=== PATIENT | female | born 1980 | race African-American/Black ===

== ENCOUNTER 2025-04-09 14:52 | Inpatient (IN) | payer MEDICAID, SELFPAY ==
[2025-04-09 15:01] VITALS: BP 139/65; PULSE 73; RESP 16; TEMP 36.9; O2SAT 99
--- NOTE | 2025-04-09 15:24 | ED.C_ITS ---
HPI - Psych 2 General: Chief Complaint: Psychiatric Symptoms Stated Complaint: 96 Time Seen by Provider: 04/09/25 14:57 Source: patient and police History of Present Illness: 44-year-old female brought in by [facility] police for suicidal statements patient was arrested yesterday in front of the truck driver instructor today had stated she just wants to and wants to kill herself and placed under a quarter 96-hour hold and brought here. Patient here has been very avoidant is only answering a few questions patient appears very paranoid and confused Associated symptoms: Reports suicidal ideation Related Data Allergies Allergy/AdvReac Type Severity Reaction Status Date / Time Unable to Assess Allergy Unverified 04/09/25 17:33 Review of Systems 2 Psych: Reports: suicidal ideation Physical Exam 2 Const: COMMON NORMALS: alert; negative for patient oriented x3 ORIENTATION/CONSCIOUSNESS: Yes oriented to person; not oriented to place and not oriented to time HENMT: COMMON NORMALS: normocephalic and atraumatic HEAD & SCALP: n ormocephalic and atraumatic Eye: COMMON NORMALS: Equal, round and reactive pupils present and EOMs intact bilaterally PUPIL: Yes Equal, round and reactive pupils present Neck/C-Spine: COMMON NORMALS: full ROM Chest: COMMONS NORMALS: normal inspection of the chest and normal palpation of entire chest wall Resp: COMMON NORMALS: normal respiratory effort, No retractions, No use of accessory muscles and clear to auscultation bilaterally AUSCULTATION: clear to auscultation bilaterally Cardio: COMMON NORMALS: regular rate, regular rhythm and No murmurs present (Cardio) RATE: regular rate RHYTHM: regular rhythm Extremity: COMMON NORMALS: normal to inspection and full ROM Neuro: COMMON NORMALS: moves all extremities and no focal motor deficits; negative for patient oriented x3 SENSORIUM/ORIENTATION: Yes alert, Yes oriented to person, No oriented to place and No oriented to time Psych: COMMON NORMALS: negative for mental status grossly normal ATTITUDE: Yes evasive MOOD & AFFECT: Yes depressed mood THOUGHT CONTENT: Yes Suicidality present Skin: COMMON NORMALS: no rashes or lesions noted and no wounds GENERAL SKIN EXAM: no rashes or lesions noted Course 2 Vital Signs: Vital signs: Vital Signs Temperature 98.4 F 04/09/25 15:01 Pulse Rate 73 04/09/25 15:01 Respiratory Rate 16 04/09/25 15:01 Blood Pressure 139/65 04/09/25 15:01 Pulse Oximetry 99 04/09/25 15:01 Oxygen Delivery Me thod Room Air 04/09/25 15:01 MDM - Psych Medical Decision Making Patient presents here with police on a 96-hour hold for making suicidal statements in court. She had been arrested yesterday for erratic behavior and threatening people. Patient here has had erratic behavior she is able to tell me her name but is very paranoid did make statements that she wanted to . While patient was here her lab work did show an anion gap with a low CO2 she had also had a slight elevated white count. Did check a urinalysis no signs of UTI chest x-ray showed no signs of pneumonia. She has had no fever here no nuchal rigidity no sign of meningitis. Did perform a head CT as she has had confusion and has had no history of ever being here before head CT here showed a possible infarct. She is not a lytic candidate due to not knowing when her last known well was. I did speak to the hospitalist and will admit here for medical clearance while she is on a 96-hour hold I spoke to psychiatrist Dr. Chacon who is consulted as well. Medical Records I reviewed the patient's medical records. Lab Data I reviewed the patient's lab results. 04/09/25 15:39 04/09/25 18:38 Radiology Impressions Chest X-Ray 04/09/25 17:02 IMPRESSION: No acute findings. Head CT 04/09/25 17:02 IMPRESSION: Possible infarct superior aspect of the right cerebellar hemisphere. Please correlate with history. No definite acute finding. ASSESSMENT: ASPECTS ([place] Stroke Program Early CT Score) is 10. ADDENDUM: 04/09/251929 Addendum: THIS REPORT CONTAINS FINDINGS THAT MAY BE CRITICAL TO PATIENT CARE. The findings were verbally communicated via telephone conference with SMITA NAVARRO at 7:29 PM GUIDANCE AND CONTROL SYSTEM ENGINEER on 04/09/2025. The findings were acknowledged and understood. Laboratory Results WBC 16.69 10^3/uL (3.29-11.43) H 04/09/25 15:39 RBC 4.35 10^6/uL (3.85-5.65) 04/09/25 15:39 Hgb 11.70 g/dL (11.27-16.99) 04/09/25 15:39 Hct 36.3 % (36-47) 04/09/25 15:39 MCV 83.4 fl (85-98) L 04/09/25 15:39 MCH 26.9 pg (27-33) L 04/09/25 15:39 MCHC 32.2 g/dL (30-55) 04/09/25 15:39 RDW 16.0 % (12.1-15.1) H 04/09/25 15:39 Plt Count 339 10^3/cmm (157-399) 04/09/25 15:39 MPV 10.9 fL (7.4-10.4) H 04/09/25 15:39 Neut % (Auto) 85.9 % 04/09/25 15:39 Lymph % (Auto) 6.5 % 04/09/25 15:39 [place] % (Auto) 6.7 % 04/09/25 15:39 Eos % (Auto) 0.0 % 04/09/25 15:39 Baso % (Auto) 0.2 % 04/09/25 15:39 Neut # (Auto) 14.35 10^3/uL (1.8-7.7) H 04/09/25 15:39 Lymph # (Auto) 1.1 10^3/uL (0.8-4.8) 04/09/25 15:39 [place] # (Auto) 1.1 10^3/uL (0.2-0.9) H 04/09/25 15:39 Eos # (Auto) 0.0 10^3/uL (0.0-0.8) 04/09/25 15:39 Baso # (Auto) 0.0 10^3/uL (0.0-0.1) 04/09/25 15:39 Nucleated RBC % (auto) 0 % 04/09/25 15:39 Nucleated RBCs # 0.0 /100WBC 04/09/25 15:39 Sodium 138 mmol/L (136-145) 04/09/25 18:38 Potassium 3.7 mmol/L (3.5-5.1) 04/09/25 18:38 Chloride 106 mmol/L (98-107) 04/09/25 18:38 Carbon Dioxide 11 mmol/L (22-29) L 04/09/25 18:38 Anion Gap 24.7 (5-19) H 04/09/25 18:38 BUN 15 mg/dL (6-20) 04/09/25 18:38 Creatinine 0.7 mg/dL (0.5-0.9) 04/09/25 18:38 GFR Calculation 111.0 mL/min (90-130) 04/09/25 18:38 Glucose 70 mg/dL (65-115) 04/09/25 18:38 Calculated Osmolality 285 mOsm/kg (285-295) 04/09/25 18:38 Lactic Acid 1.2 mmol/L (0.5-2.2) 04/09/25 17:18 Calcium 8.1 mg/dL (8.5-10.5) L 04/09/25 18:38 Total Bilirubin 0.8 mg/dL (0.15-1.2) 04/09/25 16:30 AST 128 U/L (0-32) H 04/09/25 16:30 ALT 51 U/L (0-33) H 04/09/25 16:30 Alkaline Phosphatase 93 U/L (35-105) 04/09/25 16:30 Total Protein 8.4 g/dL (6.6-8.7) 04/09/25 16:30 Albumin 4.9 g/dL (3.5-5.2) 04/09/25 16:30 Globulin 3.5 g/dL (1.3-4.6) 04/09/25 16:30 HCG, Qual Negative (Negative) 04/09/25 18:20 Urine Color Yellow (Yellow) 04/09/25 18:20 Urine Appearance Clear (CLEAR) 04/09/25 18:20 Urine pH 5.5 (5-7) 04/09/25 18:20 Ur Specific [place] 1.024 (1.005-1.030) 04/09/25 18:20 Urine Protein 2+ (Negative) A 04/09/25 18:20 Urine Glucose (UA) Negative (Normal) 04/09/25 18:20 Urine Ketones 4+ (Negative) 04/09/25 18:20 Urine Blood 3+ (Negative) A 04/09/25 18:20 Urine Nitrate Negative (Negative) 04/09/25 18:20 Urine Bilirubin Negative (Negative) 04/09/25 18:20 Urine Urobilinogen 1.0 mg/dL (Negative) 04/09/25 18:20 Ur Leukocyte Esterase Negative (Negative) 04/09/25 18:20 Urine RBC 0-2 /hpf (0-2) 04/09/25 18:20 Urine WBC 6-10 /hpf (0-5) 04/09/25 18:20 Ur Squamous Epith Cells 0-5 /hpf (0-5) 04/09/25 18:20 Amorphous Sediment Not Reportable 04/09/25 18:20 Urine Bacteria None seen /hpf (NONE) 04/09/25 18:20 Hyaline Casts 4.52 /lpf 04/09/25 18:20 Salicylates 1.6 mg/dL (3-10) L 04/09/25 16:30 Urine Opiates Screen Positive ng/mL (Negative) H 04/09/25 18:20 Acetaminophen < 5.0 ug/mL (10-30) L 04/09/25 16:30 Ur Barbiturates Screen Negative ng/mL (Negative) 04/09/25 18:20 Ur Phencyclidine Scrn Negative ng/mL (Negative) 04/09/25 18:20 Ur Amphetamines Screen Negative ng/mL (Negative) 04/09/25 18:20 U Benzodiazepines Scrn Negative ng/mL (Negative) 04/09/25 18:20 Urine Cocaine Screen Negative ng/mL (Negative) 04/09/25 18:20 U Marijuana (THC) Screen Positive ng/mL (Negative) H 04/09/25 18:20 Ethyl Alcohol < 10 mg/dL (0-10) 04/09/25 16:30 All radiology interpretation(s) finalized by discharge Discharge Plan Discharge Patient Disposition: Admitted As Inpatient Clinical Impression: Suicidal ideation, Altered mental status Condition: Stable Coding Level of Care Code ED Furnace Installer Helper for Farhan Julian NIH stroke score NIHSS Level Of Consciousness - 1a: 0 Level Of Consciousness Questions - 1b: Both Correct Level Of Consciousness Commands - 1c: Both Correct Best Gaze - 2: Normal Visual Lira - 3: No Visual Loss Facial Palsy - 4: Normal Motor Arm Right - 5: No Drift Motor Arm Left - 5: No Drift Motor Leg Right - 6: No Drift Motor Leg Left - 6: No Drift Limb Ataxia - 7: Absent Sensory - 8: Normal Best Language - 9: No Aphasia Dysarthia - 10: Normal Extinction And Inattention - 11: 0 Score Total Score: 0
[2025-04-09 15:59] LABS: Hematocrit 36.3 % (36-47); Hemoglobin 11.70 g/dL (11.27-16.99); Mean Corpuscular HGB Conc 32.2 g/dL (30-55); Mean Corpuscular Hemoglobin 26.9 pg (27-33); Mean Corpuscular Volume 83.4 fl (85-98); Nucleated Red Blood Cells % 0 %; Platelet Count 339 10^3/cmm (157-399); Red Blood Count 4.35 10^6/uL (3.85-5.65); White Blood Count 16.69 10^3/uL (3.29-11.43)
--- NOTE | 2025-04-09 16:49 | PC.NURSE ---
Pt was read her 96 hour hold rights at 1530 security present
[2025-04-09 16:57] LABS: Alanine Aminotransferase 51 U/L (0-33); Albumin Level 4.9 g/dL (3.5-5.2); Alkaline Phosphatase 93 U/L (35-105); Anion Gap 29.8 (5-19); Aspartate Amino Transferase 128 U/L (0-32); Blood Urea Nitrogen 18 mg/dL (6-20); Calcium 9.6 mg/dL (8.5-10.5); Carbon Dioxide 11 mmol/L (22-29); Chloride 100 mmol/L (98-107); Globulin 3.5 g/dL (1.3-4.6); Glucose 74 mg/dL (65-115); Osmolality Calculated 285 mOsm/kg (285-295); Potassium 3.8 mmol/L (3.5-5.1); Salicylate 1.6 mg/dL (3-10); Sodium 137 mmol/L (136-145); Total Protein 8.4 g/dL (6.6-8.7)
[2025-04-09 16:59] LABS: Acetaminophen < 5.0 ug/mL (10-30); Alcohol Level < 10 mg/dL (0-10)
--- NOTE | 2025-04-09 17:02 | XRR_ITS ---
PROCEDURE INFORMATION: Exam: XR Chest Exam date and time: 04/09/2025 5:02 PM Age: 44 years old Clinical indication: Screening exam; Other screening; Additional info: Psych TECHNIQUE: Imaging protocol: Radiologic exam of the chest. Views: 1 view. COMPARISON: No relevant prior studies available. FINDINGS: Lungs: Clear lungs. Pleural spaces: No pneumothorax or pleural effusion. Heart/Mediastinum: Cardiac silhouette is normal. Bones/joints: Unremarkable. XR/XR chest 1V portable [id number] IMPRESSION: No acute findings.
--- NOTE | 2025-04-09 17:02 | CTR_ITS ---
PROCEDURE INFORMATION: Exam: CT Head Without Contrast Exam date and time: 04/09/2025 7:07 PM Age: 44 years old Clinical indication: Stroke-like symptoms; Other: Confusion TECHNIQUE: Imaging protocol: Computed tomography of the head without contrast. Radiation optimization: All CT scans at this facility use at least one of these dose optimization techniques: automated exposure control; mA and/or kV adjustment per patient size (includes targeted exams where dose is matched to clinical indication); or iterative reconstruction. Other technique: STROKE PROTOCOL was implemented. COMPARISON: No relevant prior studies available. RADIATION DOSE METRICS: Total DLP (mGy-cm): 778.53 FINDINGS: Brain: There is question of some hypodensity in the superior aspect of the right cerebellar hemisphere of uncertain significance. This could represent small infarct of uncertain age. Please correlate with the clinical findings and history. There is no intracranial mass or hemorrhage. Cerebral ventricles: Ventricles within normal limits of size. Pituitary gland and sella: Pituitary is somewhat on the small side. Paranasal sinuses: Visualized sinuses are unremarkable. No fluid levels. Mastoid air cells: Visualized mastoid air cells are well aerated. Orbital cavities: Incidentally noted is that the patient's eyes are deviated towards the left. Bones: Unremarkable. No acute fracture. Soft tissues: Unremarkable. CT/CT head wo con* [id number] IMPRESSION: Possible infarct superior aspect of the right cerebellar hemisphere. Please correlate with history. No definite acute finding. ASSESSMENT: ASPECTS ([place] Stroke Program Early CT Score) is 10.
[2025-04-09 17:47] LABS: Lactic Sepsis W/Reflex 1.2 mmol/L (0.5-2.2)
--- NOTE | 2025-04-09 17:52 | PC.NURSE ---
PATIENT STRAIGHT CATH ATTEMPTED X 2. UNSUCCESSFUL DUE TO FEMALE ANATOMY.
[2025-04-09 18:26] LABS: Glucose Urine UA Negative (Normal); Nitrate Urine Negative (Negative); Specific Gravity, Urine 1.024 (1.005-1.030)
[2025-04-09 18:31] LABS: Add Urine Microscopic? YES
[2025-04-09 18:33] LABS: PCP Screen Urine Negative (Negative)
[2025-04-09 19:01] LABS: HCG Qualitative Urine. Negative (Negative)
[2025-04-09 19:14] LABS: Anion Gap 24.7 (5-19); Blood Urea Nitrogen 15 mg/dL (6-20); Calcium 8.1 mg/dL (8.5-10.5); Carbon Dioxide 11 mmol/L (22-29); Chloride 106 mmol/L (98-107); Glucose 70 mg/dL (65-115); Osmolality Calculated 285 mOsm/kg (285-295); Potassium 3.7 mmol/L (3.5-5.1); Sodium 138 mmol/L (136-145)
--- NOTE | 2025-04-09 19:59 | CTR_ITS ---
PROCEDURE INFORMATION: Exam: CTA Head With Contrast, Arteriography Exam date and time: 04/09/2025 8:48 PM Age: 44 years old Clinical indication: Condition or disease; Infarction; Additional info: Encephalopathy TECHNIQUE: Imaging protocol: Computed tomographic angiography of the head with contrast. Exam focused on the arteries. 3D rendering (Not supervised by radiologist): MIP and/or 3D reconstructed images were created by the technologist. Radiation optimization: All CT scans at this facility use at least one of these dose optimization techniques: automated exposure control; mA and/or kV adjustment per patient size (includes targeted exams where dose is matched to clinical indication); or iterative reconstruction. Contrast material: OMNI 350; Contrast volume: 100 ml; Contrast route: INTRAVENOUS (IV); COMPARISON: CT head wo con* [id number] 04/09/2025 7:07 PM RADIATION DOSE METRICS: Total DLP (mGy-cm): 434.36 FINDINGS: ANTERIOR CIRCULATION: Right internal carotid artery: Intracranial segment is patent with no significant stenosis. No aneurysm. Right middle cerebral artery: No occlusion or significant stenosis. No aneurysm. Right anterior cerebral artery: No occlusion or significant stenosis. No aneurysm. Left internal carotid artery: Intracranial segment is patent with no significant stenosis. No aneurysm. Left middle cerebral artery: No occlusion or significant stenosis. No aneurysm. Left anterior cerebral artery: No occlusion or significant stenosis. No aneurysm. POSTERIOR CIRCULATION: Right vertebral artery: No occlusion or significant stenosis. No aneurysm. 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 No occlusion. Basilar artery: No occlusion or significant stenosis. No aneurysm. Right posterior cerebral artery: No occlusion or significant stenosis. No aneurysm. Left posterior cerebral artery: No occlusion or significant stenosis. No aneurysm. Brain: No definite mass, mass effect, or midline shift. Cerebral ventricles: No ventriculomegaly. Orbital cavities: Patient is again noted to have her eyes deviated towards the left. Please correlate with the clinical examination. Bones/joints: Unremarkable. No acute fracture. Soft tissues: Unremarkable. PROCEDURE INFORMATION: Exam: CTA Neck With Contrast Exam date and time: 04/09/2025 8:48 PM Age: 44 years old Clinical indication: Condition or disease; Infarction; Additional info: Encephalopathy TECHNIQUE: Imaging protocol: Computed tomographic angiography of the neck with contrast. Exam focused on the cervical segments of the vasculature. 3D rendering (Not supervised by radiologist): MIP and/or 3D reconstructed images were created by the technologist. Radiation optimization: All CT scans at this facility use at least one of these dose optimization techniques: automated exposure control; mA and/or kV adjustment per patient size (includes targeted exams where dose is matched to clinical indication); or iterative reconstruction. Contrast material: OMNI 350; Contrast volume: 100 ml; Contrast route: INTRAVENOUS (IV); COMPARISON: CT head wo con* [id number] 04/09/2025 7:07 PM RADIATION DOSE METRICS: Total DLP (mGy-cm): 434.36 FINDINGS: Right common carotid artery: No stenosis. No dissection or occlusion. Right internal carotid artery: No stenosis of the extracranial segment. No dissection or occlusion. Right external carotid artery: No occlusion or stenosis of the origin. Left common carotid artery: No stenosis. No dissection or occlusion. Left internal carotid artery: No stenosis of the extracranial segment. No dissection or occlusion. Left external carotid artery: No occlusion or stenosis of the origin. Right vertebral artery: Right vertebral artery is dominant and is patent throughout its length without stenosis or occlusion. Left vertebral artery: Left vertebral artery is very small and hypoplastic and terminates with supply of the left PICA. Soft tissues: Normal. No significant soft tissue swelling. Bones/joints: No acute fracture. CT/CT angio headneck* [id number] IMPRESSION: There is no evidence of intracranial large vessel occlusion or aneurysm. IMPRESSION: There is no evidence of significant stenosis or occlusion in the carotid or vertebral arteries on either side of the neck REFERENCES: NASCET CRITERIA. The degree of stenosis in the cervical segment of the internal carotid artery is based on NASCET criteria. Normal is no stenosis. Mild is less than 50% stenosis. Moderate is 50-69% stenosis. Severe is 70% to 99% stenosis. Total occlusion is no detectable patent lumen.
--- NOTE | 2025-04-09 19:59 | USCV_ITS ---
JudieRica mosqueda Age: 44 Gender: F : 1980 Exam Date: 04/09/2025 21:47 Ordering Phys: Sonja Montenegro DO Technologist: MOHINDER Exam Location: [facility] [place] Indication: query cva Patient brought in by law enforcement on 96-hour involentary admission. Patient is minimally responsive in ER-9 BP: 139 / 65 HR: 98 Rhythm: Sinus Technical Quality: Adequate MEASUREMENTS (Male / Female) Normal Values 2D ECHO LV Diastolic Diameter PLAX 3.8 cm 4.2 - 5.9 / 3.9 - 5.3 cm IVS Diastolic Thickness 1.1 cm 0.6 - 1.0 / 0.6 - 0.9 cm IVS Systolic Thickness 1.1 cm LVPW Diastolic Thickness 1.1 cm 0.6 - 1.0 / 0.6 - 0.9 cm LVPW Systolic Thickness 1.4 cm LVOT Diameter 1.9 cm LV Ejection Fraction 2D Teich 69.4 % LV Ejection Fraction MOD 4C 63.9 % LV Ejection Fraction MOD 2C 67.7 % LV Ejection Fraction 2C AL 70.0 % LA Diameter 3.4 cm Aorta at Sinotubular Diameter 2.2 cm IVC Diameter 2.0 cm M-MODE LA Ao Ratio MM 1.1 AV Cusp Separation MM 2.2 cm DOPPLER AV Peak Velocity 126.0 cm/s LVOT Peak Velocity 114.0 cm/s AV Area Cont Eq vti 3.3 cm squared AV Area Cont Eq pk 2.6 cm squared MV Peak Velocity 120.0 cm/s MV Area PHT 5.1 cm squared Mitral E to A Ratio 0.9 TR Peak Velocity 239.0 cm/s TR Peak Gradient 22.8 mmHg TV Peak E Velocity 56.0 cm/s PV Peak Velocity 93.0 cm/s FINDINGS Left Ventricle Normal left ventricular size and systolic function, EF 69%.no regional wall motion abnormalities. Grade I/IV diastolic dysfunction (abnormal relaxation filling pattern), normal to mildly elevated filling pressures. Mild left ventricular hypertrophy. Right Ventricle Normal right ventricular size and systolic function. Right Atrium Normal right atrial size. Left Atrium Normal left atrial size. IA Septum Normal appearance of the interatrial septum. Mitral Valve Structurally normal mitral valve. Aortic Valve Structurally normal trileaflet aortic valve. Tricuspid Valve Mild tricuspid valve regurgitation. Pulmonic Valve Trace pulmonary valve regurgitation. Pericardium No pericardial effusion. Aorta Normal aortic annulus size. IVC Normal IVC dimension with <50% respiratory change of the inferior vena cava. CONCLUSIONS Normal left ventricular size and systolic function, EF 69%.no regional wall motion abnormalities. Grade I/IV diastolic dysfunction (abnormal relaxation filling pattern), normal to mildly elevated filling pressures. Mild left ventricular hypertrophy. Mild tricuspid valve regurgitation. Trace pulmonary valve regurgitation. There are no intracardiac masses. There is no pericardial effusion. No similar previous studies are available for comparison Dr Bela Kay MD [facility] (Electronically Signed) Final Date: 20 April 2025 08:19 S
--- NOTE | 2025-04-09 20:04 | P.HP_ITS ---
Providers/Chief Complaint 2 Chief Complaint: 96 History of Present Illness Rica Chandler is a 44 year old female Medications/Allergies Allergies Allergy/AdvReac Type Severity Reaction Status Date / Time Unable to Assess Allergy Unverified 04/09/25 17:33 Vitals/I&O/Wt Last Vital Signs Temp 98.4 F 04/09/25 15:01 Pulse 73 04/09/25 15:01 Resp 16 04/09/25 15:01 BP 139/65 04/09/25 15:01 Pulse Ox 99 04/09/25 15:01 O2 Del Method Room Air 04/09/25 15:01 04/09/25 04/09/25 04/09/25 06:59 14:59 22:59 Intake Total 1000 / 1000 Balance 1000 / 1000 Weight last 48 hrs Weight 72.575 kg Data 04/09/25 15:39 04/09/25 18:38 A&P Assessment and plan 1. Altered mental status: START OF MEDICAL REPORT Sonja Montenegro D.O. Board Certified Internal Medicine Chief Complaint: Encephalopathy versus psychosis History of Present Illness: The patient is a 44-year-old female who was transferred to the emergency department by law enforcement after appearing in front of the finished carpet inspector on this day of April 09, 2025. Has been relayed to me, that the patient may have been making suicidal statements. During my encounter with the patient, she is quite withdrawn almost catatonic. She speaks minimally and very softly. Unfortunately because of this, I am unable to obtain further history of present illness. She presents for further evaluation I have explained to the patient (if they are coherent, able to comprehend, and/or are communicative) and/or their family member(s), friend(s), guardian(s), and/or other individual(s) present on the patient?s behalf (if present) the patient?s current medical condition, the patient?s current plan of care, and I have answered all questions posed to me. Family History: Unable to obtain Physical Examination: General: -Alert and oriented ?3 -No acute distress. -No dyspnea. -No tachypnea. ? Quite withdrawn, almost catatonic Head: -Atraumatic. -Normocephalic. Eyes: -Pupils equally round and reactive to light and accommodation. -Extraocular muscles intact. Neurological: -Cranial nerves II-XII appear to be intact however the patient does not consistently follow instruction Neck: -No jugular venous distention. -No thyromegaly. -No cervical lymphadenopathy. Heart: -Regular rate. -Regular rhythm. -No murmurs. -No gallops. -No rubs. Lungs: -No wheeze. -No rhonchi. -No rales. Abdomen: -Normal bowel sounds in all four quadrants. -No rebound. -No guarding. -No tenderness. Extremities: -2/4 pulse in all four extremities. -No clubbing. -No cyanosis. -No edema. -No calf tenderness present bilaterally. -Negative Ricardo?s sign bilaterally. Musculoskeletal: -5/5 bilateral upper extremity strength. -5/5 bilateral lower extremity strength. -Sensorium of bilateral upper extremities are equal and intact. -Sensorium of bilateral lower extremities are equal and intact. Additional Details / Additional Findings / Exceptions / Miscellaneous: Pertinent Laboratory Results / Pertinent Radiology Results / Pertinent Diagnostic Results / Pertinent Vital Signs: Blood pressure 139/65, heart rate 73, respiration 16, temperature 98.4?, 94% room air. Bicarbonate 11, calcium 7.5, white blood count 16.7, MCV 83.4, urine drug screen positive for cannabinoids and opiates Social History: Caffeine: Unable to obtain Tobacco: Active smoker Alcohol: Occasional Pets: Denies + Allergies: No known drug allergies Code Status: By default, full Admission Date: 8:02 PM on April 09, 2025 Discharge Date: History of Present Illness / Hospital Course Summary: The patient is a 44-year-old female who was transferred to the emergency department by law enforcement after appearing in front of the finished carpet inspector on this day of April 09, 2025. Has been relayed to me, that the patient may have been making suicidal statements. During my encounter with the patient, she is quite withdrawn almost catatonic. She speaks minimally and very softly. Unfortunately because of this, I am unable to obtain further history of present illness. She presents for further evaluation Surgical History: Denies Assessment / Plan + Medical History: Encephalopathy versus psychosis. Patient is quite withdrawn and almost appears catatonic. CT of the head is suggestive of infarct. Urinalysis unremarkable. Will monitor patient on telemetry and checks her cardiac enzymes. Check TSH, free T4, B12, folate, magnesium, phosphorus, fasting lipid panel, ammonia, HIV, hepatitis panel, RPR, CTA of the head and neck, MRI of the brain, echocardiogram. Neuro checks every 4 hours. PT eval. OT eval. Speech pathology eval. If symptoms persist despite aforementioned evaluation, consideration for neurology consult and lumbar puncture. Aspirin 81 mg by mouth daily plus Lipitor 40 mg by mouth daily at bedtime plus IV lactated Ringer?s 150 ML?s per hour Suicidal ideation. One-to-one sitter. Psychiatry consult has been placed in the emergency department Metabolic acidosis. We will monitor serum bicarbonate level intermittently. IV lactated Ringer?s at 150 ML?s per hour Hypocalcemia. We will monitor calcium level intermittently and supplemented as necessary Microcytosis Cannabinoid abuse. The patient will be counseled regarding marijuana cessation Tobacco abuse. The patient will be counseled regarding smoking cessation Anxiety DVT prophylaxis. Bilateral SCD Consultations: Psychiatry Disposition: To be determined + Discharge Diet: Regular Discharge Activity: Discharge Condition: Discharge Medications: Time Spent with Patient: Greater than 30 minutes. Sonja Montenegro D.O. Board Certified Internal Medicine END OF MEDICAL REPORT PDMP PDMP Reviewed: Not Reviewed Attestations 2 Medical Necessity Statement*: Disposition To be determined Coding Level of Care Code Acute Code for Chg Fwd Diagnoses Altered mental status R41.82
[2025-04-09 20:46] LABS: Ammonia 58 umol/L (11-51)
[2025-04-09] MEDS: iohexol 350 mg/mL 500 mL Btl (per mL) IV (20:52)
[2025-04-09 20:56] LABS: Free T4 Free Thyroxine 1.66 ng/dL (0.82-1.77); Magnesium 2.0 mg/dL (1.7-2.3); Thyroid Stimulating Hormone 0.32 uIU/mL (0.27-4.20)
[2025-04-09 21:04] LABS: ABG PCO2 23.5 mmHg (35-45); ABG PH Result 7.30 (7.35-7.45); Alveolar-Arterial Oxygen Gradi 2.1 mmHg (5-10); Arterial Blood Gas Hematocrit 28.9 % (37-47); Blood Gas Allen Test Pos; Blood Gas Operator Identificat BD; Blood Gas Sample Site Brachial, right; Blood Gas Sample Type Arterial; Carboxyhemoglobin 0.7 %THgb (0.4-20.1); Glucose Level-ABG 71.0 mg/dL (70-115); HCO3 ABG 11.4 mmol/L (22-26); Ionized Calcium Level - ABG 1.1 mmol/L (1.1-1.4); Methemoglobin 1.2 % (0.4-1.5); Oxygen Saturation ABG 97.9; PO2 ABG 102.0 mmHg (80.0-100.0); PO2 FiO2 Ratio Arterial Blood 485; Potassium Level - ABG 3.4 mmol/L (3.5-5.0); Sodium Level - ABG 137.0 mmol/L (131-143)
[2025-04-09 22:11] VITALS: BP 121/65; PULSE 70; O2SAT 98
[2025-04-09] MEDS: calcium gluconate 0.9% NaCL 1 GM/50 ML PREMIX IV (23:43)
[2025-04-09 23:46] VITALS: BP 115/63; PULSE 104; RESP 17; TEMP 37.2; O2SAT 90
[2025-04-10] MEDS: calcium gluconate 0.9% NaCL 1 GM/50 ML PREMIX IV (00:21)
[2025-04-10 01:55] LABS: Vitamin B12 642 pg/mL (232-1245)
[2025-04-10 04:00] VITALS: BP 111/71; PULSE 74; RESP 17; TEMP 37; O2SAT 97
--- NOTE | 2025-04-10 05:00 | ECG_ITS ---
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 Measurements Intervals [place] Rate: 99 P: 66 HI: 122 QRS: 83 QRSD: 94 T: 56 QT: 350 QTc: 451 Interpretive Statements SINUS RHYTHM No previous ECG available for comparison Electronically Signed On 04-11-2025 14:23:25 HAND ZIPPER TRIMMER by Bela Kay M.D. [email or web address]
[2025-04-10 05:07] LABS: Hematocrit 31.7 % (36-47); Hemoglobin 9.90 g/dL (11.27-16.99); Mean Corpuscular HGB Conc 31.2 g/dL (30-55); Mean Corpuscular Hemoglobin 26.4 pg (27-33); Mean Corpuscular Volume 84.5 fl (85-98); Nucleated Red Blood Cells % 0 %; Platelet Count 272 10^3/cmm (157-399); Red Blood Count 3.75 10^6/uL (3.85-5.65); White Blood Count 12.37 10^3/uL (3.29-11.43)
[2025-04-10 05:30] LABS: Alanine Aminotransferase 48 U/L (0-33); Albumin Level 4.1 g/dL (3.5-5.2); Alkaline Phosphatase 77 U/L (35-105); Anion Gap 22.7 (5-19); Aspartate Amino Transferase 107 U/L (0-32); Blood Urea Nitrogen 8 mg/dL (6-20); Calcium 8.4 mg/dL (8.5-10.5); Carbon Dioxide 12 mmol/L (22-29); Chloride 107 mmol/L (98-107); Cholesterol 195 mg/dL (0-200); Globulin 2.4 g/dL (1.3-4.6); Glucose 74 mg/dL (65-115); HDL Cholesterol 87 mg/dL (60-100); Osmolality Calculated 283 mOsm/kg (285-295); Potassium 3.7 mmol/L (3.5-5.1); Sodium 138 mmol/L (136-145); Total Protein 6.5 g/dL (6.6-8.7); Triglycerides 81 mg/dL (0-150)
[2025-04-10 05:43] LABS: Hepatitis A Antibody IgM Non-Reactive (Nonreactive); Hepatitis B Surface Antigen Non-Reactive (Nonreactive)
[2025-04-10 05:46] LABS: HIV 1 & 2 Antigen Non-Reactive (Non-Reactiv)
[2025-04-10 08:00] VITALS: BP 96/61; PULSE 83; RESP 16; TEMP 36.4; O2SAT 98
--- NOTE | 2025-04-10 09:03 | PC.SLP ---
Pt still sleeping. Will attempt later today.
--- NOTE | 2025-04-10 09:10 | PC.PHAR ---
Pt does not answer questions. Verified meds via Duc MONROE
--- NOTE | 2025-04-10 10:15 | MR_ITS ---
WS: [id number] MRI BRAIN WITHOUT CONTRAST HISTORY: MRI Brain without contrast. dx: encephalopathy COMPARISON: CT head 04/09/2025 TECHNIQUE: Diffusion imaging, multiplanar T1, T2 and FLAIR imaging obtained. Study compromised by motion artifact. No evidence for acute infarct or hemorrhage. Yanez-white matter differentiation is normal. No significant volume loss. Small vessel changes in the not be evident with this amount of motion. No large prior infarcts. No hemorrhage. Ventricles and extra-axial spaces are normal. No inferior displacement of cerebellar tonsils. The sella turcica and pituitary gland are unremarkable. Dural venous sinuses and [place] demonstrate no abnormality on this unenhanced studies. Paranasal sinuses: Clear. Mastoid air cells: Normal. Calvarium and scalp: Intact. MR/MR head wo con* [id number] IMPRESSION: 1. Study limited by motion and movement artifact. 2. Normal diffusion imaging. No acute infarct. 3. No prior large infarcts or small vessel disease identified.
--- NOTE | 2025-04-10 10:40 | P.PN_ITS ---
Subjective 2 Subjective: Patient is seen this morning on the medical floor while having a sitter by the bedside. She is a 44-year-old -[place] female who was admitted via the ER last night because of report of altered mental status. There was a mention of suicide intent, for which patient is put on a sitter and suicide precautions. She currently denies any current suicidal ideation, but acknowledges having had suicidal attempts in the remote past. She reports not remembering a lot of what happened, but only remembers being around her area before she is was brought in. She maintains that she does not remember a lot of what happened. Upon arrival, she was reported to be catatonic, and also found to have some high anion gap and low bicarb levels in the BMP. She denies any known ingestion of any unusual or new drugs, or abuse of street/recreational drugs. Otherwise, she denies any complaints. Vitals/I&O/Wt Last Vital Signs Temp 97.5 F L 04/10/25 08:00 Pulse 83 04/10/25 08:00 Resp 16 04/10/25 08:00 BP 96/61 04/10/25 08:00 Pulse Ox 98 04/10/25 08:00 O2 Del Method Room Air 04/10/25 08:00 04/09/25 04/10/25 04/10/25 22:59 06:59 14:59 Intake Total 1999 1335 / 3335 412.5 / 412.5 Balance 1999 1335 / 3335 412.5 / 412.5 Weight last 48 hrs Weight 72.575 kg Weight 72.575 kg Weight 72.756 kg Weight 72.575 kg Physical Exam 2 Narrative: General: Awake and alert. Cooperative. Neuro: Cranial nerves II to XII grossly intact. No obvious focal deficits. No obvious extrapyramidal or cerebellar signs. Chest/Resp: Normal respiratory chest movts; no obvious respiratory distress. CVS: Regular heart rate and rhythm. GI: Non-distended; soft. Nontender. No obvious organomegaly. Extremities: No obvious pitting pedal edema. Skin: No obvious new rashes or new skin lesions. Data 04/10/25 04:58 04/10/25 04:58 Micro: Microbiology 04/09/25 20:12 Blood Culture - Preliminary Blood SPECIMEN COLLECTED 04/09/25 20:10 Blood Culture - Preliminary Blood SPECIMEN COLLECTED MRI: Radiologist's impression: Brain MRI: 1. Study limited by motion and movement artifact. 2. Normal diffusion imaging. No acute infarct. 3. No prior large infarcts or small vessel disease identified. A&P Assessment and plan 1. Altered mental status: 2. High anion gap metabolic acidosis: 3. Abnormal finding on CT scan: CT scan of the brain reports questionable infarcts. MRI is negative. Therefore, no obvious remote stroke. Plan: The altered mental status or catatonia is apparently resolved at the moment. However, treatment of the high anion gap, with pH of 7.3 upon presentation. I will consult. The patient will LR at this time, and reassess oral repeat BMP in the morning. No repeating the ABG. If BMP remains normal, in the other symptoms remain stable/resolved, patient can be discharged tomorrow. Otherwise, awaiting further advice/recommendation from psychiatry. Of Note: MRI of the brain is negative. Therefore any form of CVA is ruled out. PDMP PDMP Reviewed: Not Reviewed Attestations 2 Medical Necessity Statement*: Patient admitted for apparent severe clinical condition, as outlined in the Assessment & Plan section above. Patient will need up to 2 midnight stay, estimated, at least, to adequately and appropriately treat and optimally control above-named clinical conditions,. Coding Level of Care Code Acute Code for Chg Fwd Diagnoses Altered mental status R41.82 High anion gap metabolic acidosis E87.[address] scan R93.89
[2025-04-10 12:00] VITALS: BP 117/73; PULSE 109; RESP 18; TEMP 36.3; O2SAT 99
--- NOTE | 2025-04-10 14:32 | PC.OT ---
OT EVALUATION ATTEMPTED X2; PATIENT VISITING WITH NPU DR AND THEN ON PHONE AT LATER ATTEMPT. PER NURSING, PATIENT SHOWERED SELF RADHA TODAY. NO FURTHER SKILLED OT REQUIRED AT THIS TIME.
--- NOTE | 2025-04-10 14:37 | PC.PT ---
pt had PT referral. Patient had showered independently, I had observed independence with transfer. PT evaluation not needed
[2025-04-10 15:52] VITALS: BP 114/57; PULSE 86; RESP 16; TEMP 36.6; O2SAT 99
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
[2025-04-10] MEDS: HYDROcodone-acetaminophen 5-325 mg Tablet 1 TAB PO (20:08)
[2025-04-10 21:00] VITALS: BP 123/77; PULSE 96; RESP 16; TEMP 36.3; O2SAT 97
[2025-04-10 22:00] VITALS: PULSE 70
[2025-04-10] MEDS: artificial tears Op Soln 15 mL Btl 1 DROP EYE-BOTH (22:31)
[2025-04-11] VITALS (8 sets, daily range): BP systolic 113–133; BP diastolic 65–82; PULSE 70–93; RESP 16–20; TEMP 36.4–37; O2SAT 96–100; BMI 29.5
[2025-04-11] MEDS: phenol oral Spray 177 mL 3 SPRAY MUCOUS MEM (02:45)
[2025-04-11 05:11] LABS: Anion Gap 12.1 (5-19); Blood Urea Nitrogen 2 mg/dL (6-20); Calcium 8.0 mg/dL (8.5-10.5); Carbon Dioxide 20 mmol/L (22-29); Chloride 108 mmol/L (98-107); Glucose 92 mg/dL (65-115); Osmolality Calculated 280 mOsm/kg (285-295); Potassium 3.1 mmol/L (3.5-5.1); Sodium 137 mmol/L (136-145)
[2025-04-11] MEDS: lidocaine 1% 5 ML in potassium chloride premix 100 ML 52.5 ML IV (08:09)
--- NOTE | 2025-04-11 09:52 | PC.NURSE ---
Patient was unable to tolerate full k-rider. She received over half a bag.
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
[2025-04-11 13:22] LABS: Potassium 3.5 mmol/L (3.5-5.1)
--- NOTE | 2025-04-11 13:32 | P.DS_ITS ---
Discharge Providers Date of Admission: 04/09/25 19:52 Date of Discharge: April 11, 2025 Attending Provider at Admission: Sonja Montenegro DO Attending Provider at Discharge: Garland Ibarra MD Diagnoses at Discharge Discharge Diagnosis 1. Suicidal ideation: 2. Altered mental status: Details from hospital stay: Resolved. 3. Acute hypokalemia: Details from hospital stay: Resolved. 4. High anion gap metabolic acidosis: Details from hospital stay: Resolved. 5. Abnormal finding on CT scan: Details from hospital stay: CT brain showed questionable features of recent to old infarct; confirmatory MRI => Negative for any such finding. 6. MDD (major depressive disorder), recurrent severe, without psychosis: 7. PTSD (post-traumatic stress disorder): Reason for Visit Reason for Visit: Altered mentation Brief History: Patient was brought to the ER with reported altered mentation. The exact cause of this was not clear. However, she was noted to be catatonic upon admission. Lab features showed apparent and high anion gap acidosis, with ABG confirming apparent metabolic acidosis. Primary CT scan of the head showed suspected features of recent old infarct. Based on all this, she was admitted to the medical floor, and monitored closely. Hospital Course Hospital Course She was also rehydrated with Ringer's lactate infusion, while we monitored kidney function. Repeat BMP today showed improvement/resolution of the high anion gap metabolic acidosis. However, he shows some mild hypokalemia, which was corrected with 50 mEq of sodium potassium chloride infusion, plus one-time dose of oral medication. Given the mention of suicidal ideation, she was put in a one-to-one sitter. Patient was seen in-consult by the psychiatrist, who recommended inpatient admission to the psych unit for major depressive disorder with suicidal ideation when medically stable/cleared. Given return to baseline medically, and all metabolic and electrolyte derangements having been corrected, patient therefore deemed medically fit for onward transfer/discharge today to inpatient psych unit. See my discharge orders and discharge instruction from what it is. Physical Exam Narrative: General: Awake and alert patient. Resp: No obvious respiratory distress or difficulty breathing. Skin: No obvious rashes or new skin lesions. All other physical findings essentially within normal limits. Discharge Data Studies Completed and Pending Completed Studies During Hospitalization Category Date Time Status CT head wo con* [id number] Stat Cat Scan 04/09/25 17:02 Completed CTA head neck [CT angio headneck* [id number]] Stat Cat Scan 04/09/25 19:59 Completed XR chest 1V portable [id number] Stat Exams 04/09/25 17:02 Completed MR head wo con* [id number] Routine MRI 04/10/25 10:15 Completed Pending at discharge Category Date Time Status Blood Culture Stat Lab 04/09/25 20:12 Results RPR with Reflex to Titer Routine Lab 04/09/25 23:15 Received CV. echo complete* [id number] Stat Ultrasound 04/09/25 19:59 Taken Radiology Impressions Chest X-Ray 04/09/25 17:02 IMPRESSION: No acute findings. Head CT 04/09/25 17:02 IMPRESSION: Possible infarct superior aspect of the right cerebellar hemisphere. No definite acute finding. Head/Neck CTA 04/09/25 19:59 There is no evidence of intracranial large vessel occlusion or aneurysm. There is no evidence of significant stenosis or occlusion in the carotid or vertebral arteries on either side of the neck Head MRI 04/10/25 10:15 1. Study limited by motion and movement artifact. 2. Normal diffusion imaging. No acute infarct. 3. No prior large infarcts or small vessel disease identified. Laboratory Results On repeat labs essentially within normal limits, otherwise no significant other discharge today. Vitals Last Vital Signs Temp 97.6 F 04/11/25 12:00 Pulse 76 04/11/25 12:00 Resp 16 04/11/25 12:00 BP 113/76 04/11/25 12:00 Pulse Ox 97 04/11/25 12:00 O2 Del Method Room Air 04/11/25 12:00 Discharge Plan Discharge Patient Disposition: Home Condition: Stable Prescriptions: No Action acetaminophen-codeine 300-30 mg tablet 1 tab PO Q6H PRN (Reason: Pain) hydroxyzine pamoate 25 mg capsule 25 - 50 mg PO TID PRN (Reason: Anxiety) bupropion HCl 150 mg tablet extended release 24 hr 150 mg PO DAILY Labor Relations Director OK for DC: Psychiatry Patient Instructions: Opioid Safety, Patient Portal & Lynette Instructions Coding Level of Care Code Acute Code for Chg Fwd Diagnoses Suicidal ideation R45.851 Altered mental status R41.82 Acute hypokalemia E87.6 High anion gap metabolic acidosis E87.[address] scan R93.89 MDD (major depressive disorder), recurrent severe, without psychosis F33.2 PTSD (post-traumatic stress disorder) F43.10
--- NOTE | 2025-04-11 14:27 | PM.TDS ---
Transfer Summary Providers Date of Admission: 04/09/25 19:52 Date of Discharge/Transfer: 04/11/25 Attending Provider at Admission: Sonja Montenegro DO Attending Provider at Transfer: Garland Ibarra MD Transfer Plans: Anticipated date of transfer: 04/11/25. Diagnoses at Discharge Discharge Diagnosis 1. Suicidal ideation: 2. Altered mental status: 3. Acute hypokalemia: 4. High anion gap metabolic acidosis: 5. Abnormal finding on CT scan: 6. MDD (major depressive disorder), recurrent severe, without psychosis: 7. PTSD (post-traumatic stress disorder): Reason for Visit Reason for Visit Altered mentation Brief History: Patient was brought to the ER with reported altered mentation. The exact cause of this was not clear. However, she was noted to be catatonic upon admission. Lab features showed apparent and high anion gap acidosis, with ABG confirming apparent metabolic acidosis. Primary CT scan of the head showed suspected features of recent old infarct. Based on all this, she was admitted to the medical floor, and monitored closely. Hospital Course Hospital Course She was also rehydrated with Ringer's lactate infusion, while we monitored kidney function. Repeat BMP today showed improvement/resolution of the high anion gap metabolic acidosis. However, he shows some mild hypokalemia, which was corrected with 50 mEq of sodium potassium chloride infusion, plus one-time dose of oral medication. Given the mention of suicidal ideation, she was put in a one-to-one sitter. Patient was seen in-consult by the psychiatrist, who recommended inpatient admission to the psych unit for major depressive disorder with suicidal ideation when medically stable/cleared. Given return to baseline medically, and all metabolic and electrolyte derangements having been corrected, patient therefore deemed medically fit for onward transfer/discharge today to inpatient psych unit. See my discharge orders and discharge instruction from what it is. TS Data Studies Completed and Pending Pending at discharge Category Date Time Status Blood Culture Stat Lab 04/09/25 20:12 Results RPR with Reflex to Titer Routine Lab 04/09/25 23:15 Received CV. echo complete* [id number] Stat Ultrasound 04/09/25 19:59 Taken Completed Studies During Hospitalization Category Date Time Status CT head wo con* [id number] Stat Cat Scan 04/09/25 17:02 Completed CTA head neck [CT angio headneck* [id number]] Stat Cat Scan 04/09/25 19:59 Completed XR chest 1V portable [id number] Stat Exams 04/09/25 17:02 Completed MR head wo con* [id number] Routine MRI 04/10/25 10:15 Completed Laboratory Last Values WBC 12.37 10^3/uL (3.29-11.43) H 04/10/25 04:58 RBC 3.75 10^6/uL (3.85-5.65) L 04/10/25 04:58 Hgb 9.90 g/dL (11.27-16.99) L 04/10/25 04:58 Hct 31.7 % (36-47) L 04/10/25 04:58 MCV 84.5 fl (85-98) L 04/10/25 04:58 MCH 26.4 pg (27-33) L 04/10/25 04:58 MCHC 31.2 g/dL (30-55) 04/10/25 04:58 RDW 16.1 % (12.1-15.1) H 04/10/25 04:58 Plt Count 272 10^3/cmm (157-399) 04/10/25 04:58 MPV 9.2 fL (7.4-10.4) 04/10/25 04:58 Neut % (Auto) 72.9 % 04/10/25 04:58 Lymph % (Auto) 15.9 % 04/10/25 04:58 [place] % (Auto) 9.5 % 04/10/25 04:58 Eos % (Auto) 0.2 % 04/10/25 04:58 Baso % (Auto) 0.7 % 04/10/25 04:58 Neut # (Auto) 9.01 10^3/uL (1.8-7.7) H 04/10/25 04:58 Lymph # (Auto) 2.0 10^3/uL (0.8-4.8) 04/10/25 04:58 [place] # (Auto) 1.2 10^3/uL (0.2-0.9) H 04/10/25 04:58 Eos # (Auto) 0.0 10^3/uL (0.0-0.8) 04/10/25 04:58 Baso # (Auto) 0.1 10^3/uL (0.0-0.1) 04/10/25 04:58 Nucleated RBC % (auto) 0 % 04/10/25 04:58 Nucleated RBCs # 0.0 /100WBC 04/10/25 04:58 Specimen Type Arterial 04/09/25 21:00 Sample Site Brachial, right 04/09/25 21:00 ABG pH 7.30 (7.35-7.45) L 04/09/25 21:00 ABG pCO2 23.5 mmHg (35-45) L 04/09/25 21:00 ABG pO2 102.0 mmHg (80.0-100.0) H 04/09/25 21:00 ABG PO2/FiO2 Ratio 485 04/09/25 21:00 ABG HCO3 11.4 mmol/L (22-26) L 04/09/25 21:00 ABG O2 Saturation 97.9 04/09/25 21:00 ABG Base Excess -13.6 mmol/L (-2.0-2.0) L 04/09/25 21:00 [place] Test Pos 04/09/25 21:00 A-a O2 Gradient 2.1 mmHg (5-10) L 04/09/25 21:00 Hematocrit 28.9 % (37-47) L 04/09/25 21:00 Hgb O2 Saturation 96.0 % (95-100) 04/09/25 21:00 Carboxyhemoglobin 0.7 %THgb (0.4-20.1) 04/09/25 21:00 Methemoglobin 1.2 % (0.4-1.5) 04/09/25 21:00 Total Hemoglobin 9.4 g/dL (12-16) L 04/09/25 21:00 Sodium 137.0 mmol/L (131-143) 04/09/25 21:00 Potassium 3.4 mmol/L (3.5-5.0) L 04/09/25 21:00 Glucose 71.0 mg/dL (70-115) 04/09/25 21:00 Ionized Calcium 1.1 mmol/L (1.1-1.4) 04/09/25 21:00 O2 Delivery Device Room air 04/09/25 21:00 FiO2 21.0 % 04/09/25 21:00 Carbon [employer]ure [employer] Operator ID Bd 04/09/25 21:00 Sodium 137 mmol/L (136-145) 04/11/25 04:26 Potassium 3.5 mmol/L (3.5-5.1) 04/11/25 12:51 Chloride 108 mmol/L (98-107) H 04/11/25 04:26 Carbon Dioxide 20 mmol/L (22-29) L 04/11/25 04:26 Anion Gap 12.1 (5-19) 04/11/25 04:26 BUN 2 mg/dL (6-20) L 04/11/25 04:26 Creatinine 0.5 mg/dL (0.5-0.9) 04/11/25 04:26 GFR Calculation 163.7 mL/min (90-130) H 04/11/25 04:26 Glucose 92 mg/dL (65-115) 04/11/25 04:26 Calculated Osmolality 280 mOsm/kg (285-295) L 04/11/25 04:26 Lactic Acid 1.2 mmol/L (0.5-2.2) 04/09/25 17:18 Calcium 8.0 mg/dL (8.5-10.5) L 04/11/25 04:26 Phosphorus 2.7 mg/dL (2.5-4.5) 04/09/25 20:12 Magnesium 2.0 mg/dL (1.7-2.3) 04/09/25 20:12 Total Bilirubin 0.6 mg/dL (0.15-1.2) 04/10/25 04:58 AST 107 U/L (0-32) H 04/10/25 04:58 ALT 48 U/L (0-33) H 04/10/25 04:58 Alkaline Phosphatase 77 U/L (35-105) 04/10/25 04:58 Ammonia 58 umol/L (11-51) H 04/09/25 20:12 Total Protein 6.5 g/dL (6.6-8.7) L D 04/10/25 04:58 Albumin 4.1 g/dL (3.5-5.2) 04/10/25 04:58 Globulin 2.4 g/dL (1.3-4.6) 04/10/25 04:58 Triglycerides 81 mg/dL (0-150) 04/10/25 04:58 Cholesterol 195 mg/dL (0-200) 04/10/25 04:58 LDL Cholesterol, Calc 92 mg/dL (50-129) 04/10/25 04:58 HDL Cholesterol 87 mg/dL (60-100) 04/10/25 04:58 LDL/HDL Ratio 1.06 RATIO (0.00-3.22) 04/10/25 04:58 Cholesterol/HDL Ratio 2.24 mg/dL (0.0-4.40) 04/10/25 04:58 Vitamin B12 642 pg/mL (232-1245) 04/09/25 20:12 Folate 16.0 ng/mL (4.8-37.3) 04/09/25 20:12 TSH 0.32 uIU/mL (0.27-4.20) 04/09/25 20:12 Free T4 1.66 ng/dL (0.82-1.77) 04/09/25 20:12 HCG, Qual Negative (Negative) 04/09/25 18:20 Urine Color Yellow (Yellow) 04/09/25 18:20 Urine Appearance Clear (CLEAR) 04/09/25 18:20 Urine pH 5.5 (5-7) 04/09/25 18:20 Ur Specific [place] 1.024 (1.005-1.030) 04/09/25 18:20 Urine Protein 2+ (Negative) A 04/09/25 18:20 Urine Glucose (UA) Negative (Normal) 04/09/25 18:20 Urine Ketones 4+ (Negative) 04/09/25 18:20 Urine Blood 3+ (Negative) A 04/09/25 18:20 Urine Nitrate Negative (Negative) 04/09/25 18:20 Urine Bilirubin Negative (Negative) 04/09/25 18:20 Urine Urobilinogen 1.0 mg/dL (Negative) 04/09/25 18:20 Ur Leukocyte Esterase Negative (Negative) 04/09/25 18:20 Urine RBC 0-2 /hpf (0-2) 04/09/25 18:20 Urine WBC 6-10 /hpf (0-5) 04/09/25 18:20 Ur Squamous Epith Cells 0-5 /hpf (0-5) 04/09/25 18:20 Amorphous Sediment Not Reportable 04/09/25 18:20 Urine Bacteria None seen /hpf (NONE) 04/09/25 18:20 Hyaline Casts 4.52 /lpf 04/09/25 18:20 Salicylates 1.6 mg/dL (3-10) L 04/09/25 16:30 Urine Opiates Screen Positive ng/mL (Negative) H 04/09/25 18:20 Acetaminophen < 5.0 ug/mL (10-30) L 04/09/25 16:30 Ur Barbiturates Screen Negative ng/mL (Negative) 04/09/25 18:20 Ur Phencyclidine Scrn Negative ng/mL (Negative) 04/09/25 18:20 Ur Amphetamines Screen Negative ng/mL (Negative) 04/09/25 18:20 U Benzodiazepines Scrn Negative ng/mL (Negative) 04/09/25 18:20 Urine Cocaine Screen Negative ng/mL (Negative) 04/09/25 18:20 U Marijuana (THC) Screen Positive ng/mL (Negative) H 04/09/25 18:20 Ethyl Alcohol < 10 mg/dL (0-10) 04/09/25 16:30 Hepatitis A IgM Ab Non-reactive (Nonreactive) 04/10/25 04:58 Hep Bs Antigen Non-reactive (Nonreactive) 04/10/25 04:58 Hep B Core IgM Ab Non-reactive (Nonreactive) 04/10/25 04:58 Hepatitis C Antibody Non-reactive (Nonreactive) 04/10/25 04:58 HIV 1&2 Ab & HIV 1 Ag Non-reactive (Non-Reactiv) 04/10/25 04:58 HIV 1&2 Antibody Non-reactive (Non-Reactiv) 04/10/25 04:58 Radiology Impressions X-Ray 04/09/25 17:02 IMPRESSION: No acute findings. Head CT 04/09/25 17:02 IMPRESSION: Possible infarct superior aspect of the right cerebellar hemisphere. No definite acute finding. Head/Neck CTA 04/09/25 19:59 There is no evidence of intracranial large vessel occlusion or aneurysm. There is no evidence of significant stenosis or occlusion in the carotid or vertebral arteries on either side of the neck Laboratory Results On repeat labs essentially within normal limits, otherwise no significant other discharge today. Imaging MRI: Radiologist's impression: Head MRI 04/10/25 10:15 1. Study limited by motion and movement artifact. 2. Normal diffusion imaging. No acute infarct. 3. No prior large infarcts or small vessel disease identified. Recent Clincial Data Last Vital Signs Temp 98.6 F 04/11/25 13:54 Pulse 93 04/11/25 13:54 Resp 20 H 04/11/25 13:54 BP 133/82 04/11/25 13:54 Pulse Ox 100 04/11/25 13:54 O2 Del Method Room Air 04/11/25 13:54 Vital Signs Temp Pulse Resp BP Pulse Ox O2 Del Method 04/11/25 13:54 98.6 F 93 20 H 133/82 100 Room Air 04/11/25 12:00 97.6 F 76 16 113/76 97 Room Air 04/11/25 07:49 98.3 F 80 16 113/73 96 Room Air 04/11/25 05:33 70 04/11/25 05:30 98.2 F 79 16 117/67 97 Intake & Output/Weight 04/09/25 04/10/25 04/11/25 04/12/25 06:59 06:59 06:59 06:59 Intake Total 3335 / 3335 3212.5 / 3212.5 222.375 / 222.375 Balance 3335 / 3335 3212.5 / 3212.5 222.375 / 222.375 Weight 72.575 kg 72.575 kg Vitals Last Vital Signs Temp 98.6 F 04/11/25 13:54 Pulse 93 04/11/25 13:54 Resp 20 H 04/11/25 13:54 BP 133/82 04/11/25 13:54 Pulse Ox 100 04/11/25 13:54 O2 Del Method Room Air 04/11/25 13:54 TS Medications Medications Acetaminophen (Acetaminophen 325 Mg Tablet) 650 mg PO Q6H PRN PRN Reason: Mild/Mod Pain Or Temp >/= 101 Last Admin: 04/10/25 14:11 Dose: 650 mg Acetaminophen (Acetaminophen 325 Mg Tablet) 650 mg PO Q4H PRN PRN Reason: MILD PAIN Artificial Tears (Artificial Tears Op Soln 15 Ml Btl) 1 drop EYE-BOTH Q4H PRN PRN Reason: DRY EYE(S) Last Admin: 04/10/25 22:31 Dose: 1 drop Benztropine Mesylate (Benztropine 1 Mg Tablet) 1 mg PO BID PRN PRN Reason: Mild Extrapyramidal symptoms Camphor/Menthol/Phenol (Blistex Lip Oint 7 Gm Tube) 1 applic TOPICAL Q1H PRN PRN Reason: DRYNESS Diphenhydramine HCl (Diphenhydramine 50 Mg/Ml Sdv 1ml) 50 mg IM ONCE PRN PRN Reason: Severe Extrapyramidal Symptoms Diphenhydramine HCl (Diphenhydramine 50 Mg/Ml Sdv 1ml) 50 mg IM Q4H PRN PRN Reason: Severe Aggression Haloperidol (Haloperidol 5 Mg Tablet) 5 mg PO Q4H PRN PRN Reason: AGITATION Haloperidol Lactate (Haloperidol Inj 5 Mg/Ml Inj 1 Ml) 5 mg IM Q4H PRN PRN Reason: Severe Aggression Hydroxyzine Pamoate (Hydroxyzine 25 Mg Capsule) 50 mg PO Q6H PRN PRN Reason: ANXIETY Last Admin: 04/11/25 14:18 Dose: 50 mg Ibuprofen (Ibuprofen 600 Mg Tablet) 600 mg PO Q6H PRN PRN Reason: MODERATE PAIN Last Admin: 04/11/25 14:19 Dose: 600 mg Loperamide HCl (Loperamide 2 Mg Capsule) 2 mg PO Q6H PRN PRN Reason: DIARRHEA Lorazepam (Lorazepam 2 Mg/Ml Inj 1 Ml) 2 mg IM Q4H PRN PRN Reason: Severe Aggression Nicotine (Nicotine 21 Mg Patch) 1 patch TRANSDERMA DAILY PRN PRN Reason: NICOTINE WITHDRAWAL Nicotine Polacrilex (Nicotine 2 Mg Gum) 2 mg BUCCAL Q2H PRN PRN Reason: NICOTINE WITHDRAWAL Nicotine Polacrilex (Nicotine 4 Mg Lozenge) 4 mg MUCOUS MEM Q2H PRN PRN Reason: NICOTINE CRAVINGS Olanzapine (Olanzapine 5 Mg Odt) 5 mg PO Q4H PRN PRN Reason: Agitation/Psychosis Ondansetron HCl (Ondansetron 4 Mg Tablet) 4 mg PO Q6H PRN PRN Reason: NAUSEA AND VOMITING Risperidone (Risperidone 0.25 Mg Tablet) 0.5 mg PO 2100 [place] Sertraline HCl (Sertraline 50 Mg Tablet) 50 mg PO DAILY [place] Trazodone HCl (Trazodone 50 Mg Tablet) 50 mg PO BEDTIME PRN PRN Reason: SLEEP Discontinued Medications Hydrocodone Bitart/Acetaminophen (Hydrocodone-Acetaminophen 5-325 Mg Tablet) 1 tab PO Q6H PRN PRN Reason: MODERATE PAIN Last Admin: 04/10/25 20:08 Dose: 1 tab Aspirin (Aspirin 81 Mg Ec Tablet) 81 mg PO DAILY [facility] Last Admin: 04/11/25 04:45 Dose: 81 mg Atorvastatin Calcium (Atorvastatin 20 Mg Tablet) 40 mg PO ONCE ONE Stop: 04/09/25 23:16 Last Admin: 04/09/25 23:50 Dose: Not Given Sodium Chloride (Sodium Chloride 0.9%) 1,000 mls @ 999 mls/hr IV .Q1H1M [facility] Stop: 04/09/25 19:15 Last Infusion: 04/09/25 21:36 Dose: Infused Lactated Ringer's (Lactated Ringers) 1,000 mls @ 125 mls/hr IV .Q8H [facility] Stop: 04/11/25 03:50 Last Infusion: 04/11/25 02:42 Dose: Infused Calcium Gluconate/Sodium Chloride (Calcium Gluconate 0.9% Nacl) 1 gm in 50 mls @ 100 mls/hr IV Q30M [facility] Stop: 04/10/25 00:14 Last Infusion: 04/10/25 01:31 Dose: Infused Potassium Chloride (K-Tommie Premix) 100 mls @ 50 mls/hr IV ONCE [place] Lidocaine HCl 5 ml/ Potassium (Chloride) 105 mls @ 52.5 mls/hr IV ONCE ONE Stop: 04/11/25 09:54 Last Infusion: 04/11/25 10:06 Dose: 0 mls/hr Iohexol (Iohexol 350 Mg/Ml 500 Ml Btl (Per Ml)) 0 ml IV ONCE ONE Stop: 04/09/25 20:52 Last Admin: 04/09/25 20:52 Dose: 100 ml Ondansetron HCl (Ondansetron 2 Mg/Ml Sdv 2 Ml) 4 mg IVP Q4H PRN PRN Reason: vomiting, or N/V if npo Phenol (Phenol Oral [place] 177 Ml) 3 spray MUCOUS MEM Q2H PRN PRN Reason: SORE THROAT Last Admin: 04/11/25 02:45 Dose: 3 spray Potassium Chloride (Potassium Chloride Er 20 Meq Tablet) 40 meq PO DAILY [facility] Last Admin: 04/11/25 08:08 Dose: 40 meq Sertraline HCl (Sertraline 50 Mg Tablet) 25 mg PO ONCE ONE Stop: 04/11/25 12:54 Last Admin: 04/11/25 13:07 Dose: 25 mg Allergies No Known Allergies Allergy (Verified 04/11/25 00:36) Home Medications acetaminophen 300 mg-codeine 30 mg tablet 1 tab PO Q6H PRN Pain 04/10/25 [History Confirmed 04/10/25] bupropion HCl 150 mg 24 hr tablet, extended release 150 mg PO DAILY 04/10/25 [History Confirmed 04/10/25] hydroxyzine pamoate 25 mg capsule 25 - 50 mg PO TID PRN Anxiety 04/10/25 [History Confirmed 04/10/25] Discharge Plan Discharge Patient Disposition: Home Condition: Stable Prescriptions: No Action acetaminophen-codeine 300-30 mg tablet 1 tab PO Q6H PRN (Reason: Pain) hydroxyzine pamoate 25 mg capsule 25 - 50 mg PO TID PRN (Reason: Anxiety) bupropion HCl 150 mg tablet extended release 24 hr 150 mg PO DAILY [employer] OK for DC: Psychiatry Discharge Diet: Usual diet Discharge Activity: Resume usual activity Patient Instructions: Opioid Safety, Patient Portal & Lynette Instructions Transfer Attestations Time Spent in Transfer Care: less than 30 min Quality Metrics Clinical Quality Measures [ No reported AMI, CVA or VTE this stay] Coding Level of Care Code 44986 Diagnoses Suicidal ideation R45.851 Altered mental status R41.82 Acute hypokalemia E87.6 High anion gap metabolic acidosis E87.[address] scan R93.89 MDD (major depressive disorder), recurrent severe, without psychosis F33.2 PTSD (post-traumatic stress disorder) F43.10
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
[2025-04-11] MEDS: blistex lip oint 7 gm Tube 1 APPLIC TOPICAL ×2 (17:38→17:40)
[2025-04-12 06:00] VITALS: BP 113/72; PULSE 98; RESP 16; TEMP 37.1; O2SAT 99
--- NOTE | 2025-04-12 10:04 | PC.NURSE ---
Patient right middle finger pad with open area that appears blistered and green. She states they had been putting [place]YSON and a bandage on the finger. Patient has c/o pain with this. Finger was cleansed with NS and covered with telfa then secured with tape. Hospitalist notified.
--- NOTE | 2025-04-12 11:02 | PM.MISC ---
Miscellaneous Note Purpose of Documentation: Treatment of finger wound. Note: Subjective: My attention called patient was reported a finger wound that looks infected. She reports persistent Pain and mild surrounding swelling in a wound in the finger which she sustained few days ago after recent injury there. On Examination: Wound shows overlying area of yellowish subcutaneous tissue with mild surrounding erythema and induration. Assessment: Mild infected finger versus normal reaction. Plan: The patient has send DS Bactrim x 4 days. Keep wound clean and dry at most times. Local wound dressing/covering otherwise recommended. Patient reassured; the wound is very likely to heal within the next week plus without any significant complications. Going forward: Hospitalist will continue to follow peripherally as needed.
[2025-04-12] MEDS: mupirocin oint 22 gm 1 APPLIC TOPICAL ×2 (13:14→13:26)
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
[2025-04-12 13:40] VITALS: BP 134/76; PULSE 94; RESP 18; O2SAT 99
[2025-04-12] MEDS: sulfamethoxazole-trimeth DS 160-800 mg Tablet 1 TAB PO (17:22)
[2025-04-12 20:39] VITALS: BP 124/70; PULSE 77; RESP 16; TEMP 37.3; O2SAT 100
[2025-04-13 06:00] VITALS: BP 114/70; PULSE 78; RESP 16; TEMP 36.9; O2SAT 99
[2025-04-13] MEDS: mupirocin oint 22 gm 1 APPLIC TOPICAL ×3 (08:00→20:58)
[2025-04-13] MEDS: sulfamethoxazole-trimeth DS 160-800 mg Tablet 1 TAB PO ×2 (08:00→17:09)
[2025-04-13 09:13] LABS: RPR w(Moniotor) w/REFL Titer NON-REACTIVE (NON-REACTIVE)
[2025-04-13 14:00] VITALS: BP 132/82; PULSE 101; RESP 16; TEMP 36.6; O2SAT 100
--- NOTE | 2025-04-13 14:55 | P.NPUPN_ITS ---
Subjective NPU 2 Subjective: 44-year-old female history of PTSD and d epression admitted with reports of suicidal ideation. The patient had continued to report that she had no recollection of her behavior that had led to her hospitalization here. She had allegedly made threats to harm her mother and had been violent and had apparently asked the police to kill her. She again had problems with recalling these events. She had reported that she was feeling better but continued to report having problems with flashbacks regarding seeing her 6-month-old baby dad from SIDS. She reported that the birthday of her child was March 17 and this had led her to having increased recollections and intense reminders regarding her . She had reported that she had been unable to work for several months and stated that she struggled with problems with concentration and memory with frequent flashbacks. She continued to report having problems with managing her worry and stated that she was concerned about potentially going to residential. She had reported having a good visit with her fianc? yesterday. Mental Status Exam 2 MSE Comments: The patient is an anxious -Swazi female who appeared her stated age who was pacing. Her gait was within normal limits. Her speech was normal in regards to rate, rhythm, and prosody. Her gait was not tested. Her hygiene was fair. There was no evidence of any abnormal involuntary motor movements, tics, or tremors appreciated. She was alert and oriented to person, place, and time today. Her mood was described as okay. Her affect was anxious and occasionally tearful. Her thought process was linear, logical, and goal- directed. Her thought content revealed no suicidal or active homicidal ideation currently. There was no evidence of any delusional thinking. She did not appear to be responding to internal stimuli. Her attention span appeared adequate. Her insight appeared limited. Her judgment was poor. Her impulse control appeared poor. She continued to describe having significant blackouts for long stretches of time. Vitals/I&O/Wt Last Vital Signs Temp 97.9 F 04/13/25 14:00 Pulse 101 H 04/13/25 14:00 Resp 16 04/13/25 14:00 BP 132/82 04/13/25 14:00 Pulse Ox 100 04/13/25 14:00 O2 Del Method Room Air 04/13/25 14:00 Weight last 48 hrs Weight 78.018 kg Weight 78.018 kg Data NPU 04/10/25 04:58 04/11/25 12:51 A&P Assessment and plan 1. MDD (major depressive disorder), recurrent severe, without psychosis: 2. PTSD (post-traumatic stress disorder): 3. Suicidal ideation: Plan: 44-year-old female presented on a 96-hour hold with a significant history of PTSD and depression reporting a recent exacerbation of PTSD symptoms with dissociative symptoms. #1. Monitor for dissociation, clarify legal issues, patient to return to residential upon stablization here? #2. continue to evaluate under 96 hour hold #3. continue zoloft 50mg daily and increase risperidone to 1mg at night. #4. Attempt to gather collateral information including previous medication trials. PDMP PDMP Reviewed: Not Reviewed Involuntary Hold Information 2 Hold Status: Legal Status: 96 Hour Hold Date/Time Hold Expires: 1 06/15/24@1510 Attestations NPU 2 Medical Necessity Statement*: Once cleared by medicine, inpatient psychiatric hospitalization is medically necessary and deemed to be the clinically appropriate intervention at this time.? Medications will be initiated and adjusted as clinically indicated. The patient?s likely length of stay is 5-7 days. Coding Level of Care Code Acute Code for [facility] Fwd Diagnoses MDD (major depressive disorder), recurrent severe, without psychosis F33.2 PTSD (post-traumatic stress disorder) F43.10 Suicidal ideation R45.850
[2025-04-13 18:45] VITALS: BP 138/93; PULSE 93; RESP 24; O2SAT 100
[2025-04-13 20:25] VITALS: BP 133/82; PULSE 90; RESP 20; O2SAT 100
[2025-04-13 20:38] VITALS: TEMP 37
[2025-04-14 06:00] VITALS: BP 105/67; PULSE 107; RESP 18; TEMP 36.9; O2SAT 98
[2025-04-14] MEDS: sulfamethoxazole-trimeth DS 160-800 mg Tablet 1 TAB PO (07:43)
[2025-04-14] MEDS: mupirocin oint 22 gm 1 APPLIC TOPICAL ×2 (07:44→18:04)
--- NOTE | 2025-04-14 10:36 | PC.NURSE ---
While attending group pt became light headed and in a bit of a panic. Pt was escorted to her room by nursing staff, vitals were WNL. Temp 98.5, Pulse Rate 94, Res 20, BP 135/76, O2 99% on Room Air. Pt stated feeling sick to her stomach, pt is currently laying down resting in bed.
--- NOTE | 2025-04-14 13:52 | P.NPUPN_ITS ---
Subjective NPU 2 Subjective: 44-year-old female history of PTSD and d epression admitted with reports of suicidal ideation. The patient continued to report that she would kill herself if she was to return back to long term. She continue to report little recollection regarding her actions at the police station or at home. She had reported that she continued to worry about her ex and father of her 8-year-old taking her child away from her. She had reported continued problems with her thoughts stating that she was worrying about a lot of different things. She had reported feeling worried that something bad would happen to her. She had reported having struggles with managing her anxiety. She had reported a variety of different complaints stating that she felt lightheaded and felt dizzy. She had reported having low energy and low motivation. She had continued to report reoccurring thoughts about her childhood from SIDS 6 years ago. She had reported that she was unable to recall what medication she had taken and it stabilized her during her extended hospitalization in 2019. She reports sleep continuity disruption along with difficulties with falling asleep. Mental Status Exam 2 MSE Comments: The patient is an anxious -Somali female who appeared her stated age who was pacing. Her gait was within normal limits. Her speech was normal in regards to rate, rhythm, and prosody. Her gait was not tested. Her hygiene was fair. There was no evidence of any abnormal involuntary motor movements, tics, or tremors appreciated. She was alert and oriented to person, place, and time today. Her mood was described as scared. Her affect was labile. Her thought process was linear, logical, and goal-directed. Her thought content revealed contingent suicidal ideation and denied homicidal ideation currently. There was no evidence of any delusional thinking. She did not appear to be responding to internal stimuli. Her attention span appeared adequate. Her insight appeared limited. Her judgment was poor. Her impulse control appeared poor. She continued to describe having significant blackouts for long stretches of time. Vitals/I&O/Wt Last Vital Signs Temp 98.5 F 04/14/25 06:00 Pulse 107 H 04/14/25 06:00 Resp 18 04/14/25 06:00 BP 105/67 04/14/25 06:00 Pulse Ox 98 04/14/25 06:00 O2 Del Method Room Air 04/14/25 06:00 Data NPU 04/10/25 04:58 04/11/25 12:51 A&P Assessment and plan 1. MDD (major depressive disorder), recurrent severe, without psychosis: 2. PTSD (post-traumatic stress disorder): 3. Suicidal ideation: Plan: 44-year-old female presented on a 96-hour hold with a significant history of PTSD and depression reporting a recent exacerbation of PTSD symptoms with dissociative symptoms. #1. Monitor for dissociation, clarify legal issues, patient to return to long term after stabilization. #2. continue to evaluate under 96 hour hold #3. continue zoloft 50mg daily and continue risperidone at 1mg at night. #4. Attempt to gather collateral information including previous medication trials and previous hospitalization at [facility] in 2019. #5. Add klonopin .25mg bid for anxiety. PDMP PDMP Reviewed: Not Reviewed Involuntary Hold Information 2 Hold Status: Legal Status: 96 Hour Hold Date/Time Hold Expires: 04/15/25 @ 15:10 Attestations NPU 2 Medical Necessity Statement*: Once cleared by medicine, inpatient psychiatric hospitalization is medically necessary and deemed to be the clinically appropriate intervention at this time.? Medications will be initiated and adjusted as clinically indicated. The patient?s likely length of stay is 5-7 days. Coding Level of Care Code Acute Code for [employer] Fwd Diagnoses MDD (major depressive disorder), recurrent severe, without psychosis F33.2 PTSD (post-traumatic stress disorder) F43.10 Suicidal ideation R45.851
[2025-04-14 14:00] VITALS: BP 131/75; PULSE 98; RESP 17; TEMP 36.8; O2SAT 96
[2025-04-14 19:49] VITALS: BP 116/69; PULSE 93; RESP 18; TEMP 36.8; O2SAT 95
[2025-04-15 06:00] VITALS: BP 119/68; PULSE 108; RESP 16; TEMP 36.9; O2SAT 98
[2025-04-15 14:00] VITALS: BP 125/83; PULSE 93; RESP 15; TEMP 36.7; O2SAT 99
--- NOTE | 2025-04-15 14:28 | W.PM.NPUPNS ---
Subjective NPU Subjective: 44-year-old female history of PTSD and depression admitted with reports of suicidal ideation. Patient continued to perseverate about the possibility that she would be going to senior living directly from here. She had complained of a variety of different problems stating that she had felt nauseous but relieved after receiving promethazine rectally. The patient had reported continued feelings of hopelessness and continued to endorse having flashbacks regarding her trauma. She had continued to report depression and stated that she would kill herself if she were to return to senior living. Patient was informed that the patient was indeed going to be placed in senior living due to active charges. She reported some difficulties falling asleep. She reported periods of intense flashbacks in the middle of the day. Mental Status Exam MSE Comments: The patient is an anxious -Tongan female who appeared her stated age who was lying down on the tiled floor stating it felt better for her. Her gait was within normal limits. Her speech was normal in regards to rate, rhythm, and prosody. Her gait was not tested. Her hygiene was fair. There was no evidence of any abnormal involuntary motor movements, tics, or tremors appreciated. She was alert and oriented to person, place, and time today. Her mood was described as depressed. Her affect was restricted in range and mood congruent. Her thought process was linear, logical, and goal-directed. Her thought content revealed contingent suicidal ideation and denied homicidal ideation currently. There was no evidence of any delusional thinking. She did not appear to be responding to internal stimuli. Her attention span appeared adequate. Her insight appeared limited. Her judgment was poor. Her impulse control appeared poor. She was alert and oriented to person, place and time. Vitals/I&O/Wt Last Vital Signs Temp 98.1 F 04/15/25 14:00 Pulse 93 04/15/25 14:00 Resp 15 04/15/25 14:00 BP 125/83 04/15/25 14:00 Pulse Ox 99 04/15/25 14:00 O2 Del Method Room Air 04/15/25 06:00 Data NPU 04/10/25 04:58 04/11/25 12:51 Micro: Microbiology 04/09/25 20:12 Blood Culture - Final Blood NO GROWTH AFTER 5 DAYS 04/09/25 20:10 Blood Culture - Final Blood NO GROWTH AFTER 5 DAYS Microbiology 04/09/25 20:12 Blood Blood Culture - Final NO GROWTH AFTER 5 DAYS 04/09/25 20:10 Blood Blood Culture - Final NO GROWTH AFTER 5 DAYS A&P Assessment and plan 1. MDD (major depressive disorder), recurrent severe, without psychosis: 2. PTSD (post-traumatic stress disorder): 3. Suicidal ideation: Plan: 44-year-old female presented on a 96-hour hold with a significant history of PTSD and depression reporting a recent exacerbation of PTSD symptoms with dissociative symptoms. #1. Monitor for dissociation, clarify legal issues, patient to return to senior living after stabilization. #2. continue to evaluate under 96 hour hold #3. increase zoloft 75mg daily and continue risperidone at 1mg at night. #4. Attempt to gather collateral information including previous medication trials and previous hospitalization at [facility] in 2019. #5. Continue klonopin .25mg bid for anxiety. PDMP PDMP Reviewed: Not Reviewed Involuntary Hold Information Hold Status: Legal Status: 96 Hour Hold Date/Time Hold Expires: 04/15/25 @ 15:10 Attestations NPU Medical Necessity Statement*: Inpatient psychiatric hospitalization is medically necessary and deemed to be the clinically appropriate intervention at this time.? Medications will be initiated and adjusted as clinically indicated. The patient?s likely length of stay is 5-7 days. Coding Level of Care Code Acute Code for g Fwd Diagnoses MDD (major depressive disorder), recurrent severe, without psychosis F33.2 PTSD (post-traumatic stress disorder) F43.10 Suicidal ideation R45.851
[2025-04-15 19:49] VITALS: BP 125/84; PULSE 79; RESP 20; TEMP 36.8; O2SAT 96
[2025-04-15] MEDS: alum-mag-hydroxide-sime 30 mL UDC 15 ML PO (20:06)
[2025-04-16] MEDS: alum-mag-hydroxide-sime 30 mL UDC 15 ML PO ×2 (00:46→06:40)
[2025-04-16 06:00] VITALS: BP 125/74; PULSE 92; RESP 14; TEMP 36.9; O2SAT 97
[2025-04-16 08:40] LABS: Hematocrit 39.6 % (36-47); Hemoglobin 12.30 g/dL (11.27-16.99); Mean Corpuscular HGB Conc 31.1 g/dL (30-55); Mean Corpuscular Hemoglobin 26.2 pg (27-33); Mean Corpuscular Volume 84.4 fl (85-98); Nucleated Red Blood Cells % 0 %; Platelet Count 429 10^3/cmm (157-399); Red Blood Count 4.69 10^6/uL (3.85-5.65); White Blood Count 9.17 10^3/uL (3.29-11.43)
[2025-04-16 09:19] LABS: Alanine Aminotransferase 29 U/L (0-33); Albumin Level 4.5 g/dL (3.5-5.2); Alkaline Phosphatase 74 U/L (35-105); Anion Gap 17.3 (5-19); Aspartate Amino Transferase 20 U/L (0-32); Blood Urea Nitrogen 9 mg/dL (6-20); Calcium 9.7 mg/dL (8.5-10.5); Carbon Dioxide 28 mmol/L (22-29); Chloride 96 mmol/L (98-107); Globulin 3.0 g/dL (1.3-4.6); Glucose 119 mg/dL (65-115); Osmolality Calculated 286 mOsm/kg (285-295); Potassium 3.3 mmol/L (3.5-5.1); Sodium 138 mmol/L (136-145); Total Protein 7.5 g/dL (6.6-8.7)
--- NOTE | 2025-04-16 09:50 | P.NPUPN_ITS ---
Subjective NPU 2 Subjective: 44-year-old female history of PTSD and d epression admitted with reports of suicidal ideation. The patient continued to report that she was feeling sick. The patient's potassium and chloridewas low likely secondary to vomiting. She reported improved ability to manage anxiety as she had kept Klonopin down. She reported continued concern about going to intermediate. She had continued to report having periods of dissociation. She had continued report flashbacks and intense recollections along with nightmares nearly every night. Mental Status Exam 2 MSE Comments: The patient is an anxious -Taiwanese female who appeared her stated age who was lying down in her room in moderate distress. Her gait was within normal limits. Her speech was normal in regards to rate, rhythm, and prosody. Her hygiene was fair. There was no evidence of any abnormal involuntary motor movements, tics, or tremors appreciated. She was alert and oriented to person, place, and time today. Her mood was described as depressed. Her affect was restricted in range and mood congruent. Her thought process was linear, logical, and goal-directed. Her thought content revealed contingent suicidal ideation and denied homicidal ideation currently. There was no evidence of any delusional thinking. She did not appear to be responding to internal stimuli. Her attention span appeared adequate. Her insight appeared limited. Her judgment was poor. Her impulse control appeared poor. She was alert and oriented to person, place and time. Vitals/I&O/Wt Last Vital Signs Temp 98.4 F 04/16/25 06:00 Pulse 92 04/16/25 06:00 Resp 14 04/16/25 06:00 BP 125/74 04/16/25 06:00 Pulse Ox 97 04/16/25 06:00 O2 Del Method Room Air 04/15/25 19:49 Data NPU 04/16/25 08:27 04/16/25 08:27 A&P Assessment and plan 1. MDD (major depressive disorder), recurrent severe, without psychosis: 2. PTSD (post-traumatic stress disorder): 3. Suicidal ideation: Plan: 44-year-old female presented on a 96-hour hold with a significant history of PTSD and depression reporting a recent exacerbation of PTSD symptoms with dissociative symptoms. #1. Monitor for dissociation, clarify legal issues, patient to return to intermediate after stabilization. #2. continue to evaluate under 96 hour hold #3. Continue zoloft 75mg daily and continue risperidone 1mg at night. #4. Attempt to gather collateral information including previous medication trials and previous hospitalization at [facility] in 2020. #5. Continue klonopin .25mg bid for anxiety. #6. Appreciate medical consult to help regarding nausea and vomiting. PDMP PDMP Reviewed: Not Reviewed Involuntary Hold Information 2 Hold Status: Legal Status: 96 Hour Hold Date/Time Hold Expires: 04/15/25 @ 15:10 Attestations NPU 2 Medical Necessity Statement*: Inpatient psychiatric hospitalization is medically necessary and deemed to be the clinically appropriate intervention at this time.? Medications will be initiated and adjusted as clinically indicated. The patient?s likely length of stay is 5-7 days. Coding Level of Care Code Acute Code for g Fwd Diagnoses MDD (major depressive disorder), recurrent severe, without psychosis F33.2 PTSD (post-traumatic stress disorder) F43.10 Suicidal ideation R45.853
--- NOTE | 2025-04-16 09:54 | P.CONIM_ITS ---
Documented by User: Zeina García NP 04/16/25 11:14 Providers/Reason For Consult 2 Consulting Physician/Specialty*: Psychiatry Reason for Consult*: Abd pain, N/V Requesting Physician: Jemal Juan MD Attending Physician: Theo Ford NP History of Present Illness History of Present Illness Rica Chandler is a 44 year old female w/ pmhx of PTSD, and MDD. Patient was recently treated for high anion gap metabolic acidosis on 04/09. Patient was then transferred to the inpatient psych unit for suicidal ideation on 04/11. Today hospitalist services have been consulted for c/o finger wound infection in which patient was taking bactrim- this has since been d/c due to persistent c/o upper ABD pain, and N/V. Patient complains of frequent intermittent burning pain located in her chest w/ associated s/s of abd pain/burning that radiates to the back and left shoulder, and N/V. The burning pain has been going on for months. Patient has seen a gastrologist previously and there was concerns of gastritis. She denies undergoing endoscopy and does reports family hx of stomach cancer. Sprite and warm showers alleviates the pain. She denies use of NSAIDs. She reports drinking voldka w/ juice but unable to quantify how often , persistent smoking, and frequent marijuana use. A CBC, CMP was obtained and reviewed as follows: WBC: 9.17, Neut: 7.56, Hgb: 12.3, HCT 39.6, Plt: 429. Na: 138, K: 3.3. LFTs- WNL. A flu/COVID swab obtained and reviewed: Negative. Review of Systems 2 General: Reports: 10 or more systems reviewed and unremarkable except in HPI and below Medications/Allergies Home Medications ?Medication ?Instructions ?Recorded ?Confirmed ?Last Taken ?Type acetaminophen 300 mg-codeine 30 mg 1 tab PO Q6H PRN Pa in 04/10/25 04/10/25 Unknown History tablet bupropion HCl 150 mg 24 hr tablet, 150 mg PO DAILY 04/10/25 Unknown History extended release hydroxyzine pamoate 25 mg capsule 25 - 50 mg PO TID NJ N Anxiety 04/10/25 04/10/25 Unknown History Allergies Allergy/AdvReac Type Severity Reaction Status Date / Time No Known Allergies Allergy Verified 04/11/25 00:36 Current Medications Generic Name Dose Route Start Last Admin Trade Name Freq PRN Reason Stop Dose Admin Acetaminophen 650 mg 04/14/25 19:22 04/16/25 09:09 Acetaminophen 325 Mg Tablet PO 650 mg Q6H PRN Administration MILD PAIN Al Hydrox/Mg Hydrox/Simethicone 15 ml 04/15/25 17:22 04/16/25 06:40 Scat-Svn-Zjtxnuyaz-Tamara 30 Ml Udc PO 15 ml Q4H PRN Administration INDIGESTION Artificial Tears 1 drop 04/10/25 20:38 04/10/25 22:31 Artificial Tears Op Soln 15 Ml Btl EYE-BOTH 1 drop Q4H PRN Administration DRY EYE(S) Bismuth Subsalicylate 15 ml 04/11/25 16:10 04/14/25 14:09 Bismuth Subsalicylate 240 Ml Btl PO 15 ml Q4H PRN Administration DIARRHEA Calcium Carbonate 1,000 mg 04/15/25 15:01 04/15/25 15:32 Calcium Carbonate 500 Mg Chew Tablet PO 1,000 mg Q4H PRN Administration HEARTBURN Camphor/Menthol/Phenol 1 applic 04/11/25 13:53 04/11/25 17:40 Blistex Lip Oint 7 Gm Tube TOPICAL 1 applic Q1H PRN Administration DRYNESS Cephalexin HCl 500 mg 04/15/25 18:00 04/16/25 09:11 Cephalexin 500 Mg Capsule PO 500 mg BID LOUIS Administration Protocol Clonazepam 0.25 mg 04/14/25 18:00 04/16/25 09:11 Clonazepam 0.5 Mg Tablet PO 0.25 mg BID LOUIS Administration Haloperidol 5 mg 04/11/25 13:53 04/16/25 00:51 Haloperidol 5 Mg Tablet PO 5 mg Q4H PRN Administration AGITATION Hydroxyzine Pamoate 50 mg 04/11/25 13:53 04/13/25 18:56 Hydroxyzine 25 Mg Capsule PO 50 mg Q6H PRN Administration ANXIETY Loperamide HCl 2 mg 04/11/25 13:53 04/13/25 16:44 Loperamide 2 Mg Capsule PO 2 mg Q6H PRN Administration DIARRHEA Nicotine 1 patch 04/11/25 13:53 04/13/25 09:01 Nicotine 21 Mg Patch TRANSDERMA 1 patch DAILY PRN Administration NICOTINE WITHDRAWAL Nicotine Polacrilex 4 mg 04/11/25 13:54 04/14/25 08:42 Nicotine 4 Mg Lozenge MUCOUS MEM 4 mg Q2H PRN Administration NICOTINE CRAVINGS Olanzapine 5 mg 04/11/25 13:53 04/15/25 15:03 Olanzapine 5 Mg Odt PO 5 mg Q4H PRN Administration Agitation/Psychosis Ondansetron HCl 4 mg 04/11/25 13:53 04/15/25 07:50 Ondansetron 4 Mg Tablet PO 4 mg Q6H PRN Administration NAUSEA AND VOMITING Pantoprazole Sodium 40 mg 04/16/25 09:00 04/16/25 09:[address] 40 Mg Tablet PO 40 mg DAILY LOUIS Administration Promethazine HCl 25 mg 04/15/25 17:34 04/15/25 19:29 Promethazine 25 Mg Supp NJ 25 mg Q6H PRN Administration NAUSEA Risperidone 1 mg 04/13/25 21:00 04/15/25 19:29 Risperidone 1 Mg Tablet PO 1 mg 2100 LOUIS Administration Sertraline HCl 50 mg 04/12/25 05:00 04/16/25 09:11 Sertraline 50 Mg Tablet PO 50 mg DAILY LOUIS Administration Trazodone HCl 50 mg 04/11/25 13:53 04/14/25 20:48 Trazodone 50 Mg Tablet PO 50 mg BEDTIME PRN Administration SLEEP Vitals/I&O/Wt Last Vital Signs Temp 98.4 F 04/16/25 06:00 Pulse 92 04/16/25 06:00 Resp 14 04/16/25 06:00 BP 125/74 04/16/25 06:00 Pulse Ox 97 04/16/25 06:00 O2 Del Method Room Air 04/15/25 19:49 Physical Exam 2 Narrative: General: A&O x4, HEENT: Normocephalic, atraumatic, grossly unremarkable exam Cardio: NSR, normal S1-S2 without any murmurs, rubs, or gallops and JVD normal Respiratory: Clear on auscultation without any wheezes, stridor, rhonchi GI: Abd soft, tender, non-distended, normo-active bowel sounds present Neuro: intact cranial nerves motor and sensory and cerebellar/coordination function without any focal neurological deficit Behavior: Appropriate and cooperative Extremities: Right finger wound infection Adequate palpable pulses. Data 04/16/25 08:27 04/16/25 08:27 Other Labs: 04/10: Head MRI- Reviewed and demonstrated: Study limited by motion and movement artifact. Normal diffusion imaging. No acute infarct. No prior large infarcts or small vessel disease identified. 04/09: CXR: Reviewed and demonstrated: no acute findings. 04/09: Head CT: Reviewed and demonstrated:Possible infarct superior aspect of the right cerebellar hemisphere. No definite acute finding. 04/09: Head/Neck CTA: Reviewed and demonstrated: There is no evidence of intra- cranial large vessel occlusion or aneurysm. There is no evidence of significant stenosis or occlusion in the carotid or vertebral arteries on either side of the neck. A&P Assessment and plan 1. Abdominal pain: 2. Gastritis: 3. Acute hypokalemia: 4. Dysuria: Plan: GI cocktail x1 UA ordered, pending. PPI 40mg PO dly Famotidine 20mg PO bedtime Mag ordered, pending Sucralfate 1mg QID PDMP PDMP Reviewed: Not Reviewed Coding Level of Care Code 51298 Diagnoses Abdominal pain R10.9 Gastritis K29.70 Acute hypokalemia E87.6 Dysuria R30.0 Documented by User: Theo Ford NP 04/16/25 11:56 Providers/Reason For Consult 2 Reason for Consult*: Abdominal pain, nausea and vomiting History of Present Illness History of Present Illness Rica TDelma Chandler with PMH of PTSD and MDD, currently hospitalized in the inpatient psychiatric unit for suicidal ideation. Hospitalist service is consulted for evaluation of persistent abdominal pain and finger wound infection. Abdominal discomfort localized to epigastric and lower chest region, radiating to the back and left shoulder with associated nausea and intermittent vomiting / dry heaving. Symptoms have been ongoing for several months. She was evaluated in the past by gastroenterology and noted to have suspected gastritis, although she has not undergone an EGD. No prior treatment for gastritis noted. Denies fever, chills, pressure-like chest pain, adominal distention and diarrhea. Reports suprapubic discomfort with associated dysuria over the past 3 days. Denies use of NSAIDs. Endorses longstanding use of marijuana and nicotine. Notes alcohol consumption that consists of a glass of vodka. Patient is unable to quantify duration or frequency of use. Symptoms partially relieved with carbonated beverages (sprite) and warm showers. Received Maalox x 2, which she felt was minimally effective. Started on PPI (protonix) 40 mg QD today 04/16/25. In regard to her right middle finger infection, now essentially healed. She was treated with Bactrim, then transitioned to cephalexin. There was concern that Bactrim may be contributing to her GI symptoms. CBC and CMP from 04/16/25 reviewed WBC: 9.17, Neut: 7.56, Hgb: 12.3, HCT 39.6, Plt: 429. Na: 138, K: 3.3. LFTs- WNL. A flu/COVID swab Negative. Medications/Allergies Home Medications ?Medication ?Instructions ?Recorded ?Confirmed ?Last Taken ?Type acetaminophen 300 mg-codeine 30 mg 1 tab PO Q6H PRN Pa in 04/10/25 04/10/25 Unknown History tablet bupropion HCl 150 mg 24 hr tablet, 150 mg PO DAILY 04/10/25 Unknown History extended release hydroxyzine pamoate 25 mg capsule 25 - 50 mg PO TID NJ N Anxiety 04/10/25 04/10/25 Unknown History Allergies Allergy/AdvReac Type Severity Reaction Status Date / Time No Known Allergies Allergy Verified 04/11/25 00:36 Physical Exam 2 Narrative: General: A&O x4, HEENT: Normocephalic, atraumatic, grossly unremarkable exam Cardio: NSR, normal S1-S2 without any murmurs, rubs, or gallops and JVD normal Respiratory: Clear on auscultation without any wheezes, stridor, rhonchi GI: Abd soft, non-distended, normo-active bowel sounds present TTP in the epigastric and upper abdominal regions TTP posterior upper torso Neuro: AOx3, no unilateral weakness or facial asymmetry, no speech deficits Behavior: appeared in discomfort, mildly anxious Extremities: right finger wound with healing open lesion, no drainage, no s/s of infection Data 04/16/25 08:27 04/16/25 08:27 Other Labs: Labs from 04/16/25 reviewed Other Imaging: Radiologist's impression: Prior imaging reviewed 04/10: Head MRI- Reviewed and demonstrated: Study limited by motion and movement artifact. Normal diffusion imaging. No acute infarct. No prior large infarcts or small vessel disease identified. 04/09: CXR: Reviewed and demonstrated: no acute findings. 04/09: Head CT: Reviewed and demonstrated:Possible infarct superior aspect of the right cerebellar hemisphere. No definite acute finding. 04/09: Head/Neck CTA: Reviewed and demonstrated: There is no evidence of intra- cranial large vessel occlusion or aneurysm. There is no evidence of significant stenosis or occlusion in the carotid or vertebral arteries on either side of the neck. A&P Assessment and plan 1. Abdominal pain: 2. Gastritis: 3. Acute hypokalemia: 4. Dysuria: Plan: # [id number] abdominal pain # Gastritis Abdominal pain due to suspected gastritis Liver enzymes WNL - GI cocktail x1 - Pantoprazole 40 mg daily in the morning (started 04/16/25) - Famotidine 20 mg daily in the evening (started 04/16/25) - Sucralfate 1 g QID (started 04/16/25) - Continue to monitor for abdominal pain, if not improving then will consider CT of the abdomen - Add lipase # Dysuria Reports dysuria and suprapubic discomfort - Check UA # Hypokalemia K 3.3 - add-on Mg (resulted as 2.4) - already repleted with 20 mEq KCl this morning # PTSD # MDD # Suicidal ideation - psychiatry primary, managing PDMP PDMP Reviewed: Not Reviewed Consult Attestations 2 Medical Necessity Statement: Medical consult was necessary to assess patient's abdominal pain, rule out medical pathology and provide recommendations for further diagnostic work-up and management. Consult request from psychiatry. Coding Level of Care Code 21417 Diagnoses Abdominal pain R10.9 Gastritis K29.70 Acute hypokalemia E87.6 Dysuria R30.0
[2025-04-16 09:56] LABS: Respiratory Syncytial Virus Ce NEGATIVE (Negative); SARS-CoV-2 PCR NEGATIVE (Negative)
[2025-04-16] MEDS: lidocaine 2% viscous 15 ML, aluminum-mag hydrox-simethicon 30 ML, sucralfate oral liq 1 GM PO (11:03)
[2025-04-16 11:22] LABS: Magnesium 2.4 mg/dL (1.7-2.3)
[2025-04-16 11:53] LABS: Glucose Urine UA Negative (Normal); Nitrate Urine Negative (Negative); Specific Gravity, Urine 1.019 (1.005-1.030)
[2025-04-16 11:55] LABS: Add Urine Microscopic? YES
[2025-04-16 12:10] LABS: Lipase 17 U/L (13-60)
[2025-04-16 12:24] LABS: UA Slide Review UA Slide Review Perf
[2025-04-16 14:00] VITALS: BP 134/71; PULSE 105; RESP 18; TEMP 37.2; O2SAT 100
[2025-04-16 15:10] LABS: Glucose Urine UA Negative (Normal); Nitrate Urine Negative (Negative); Specific Gravity, Urine 1.020 (1.005-1.030)
--- NOTE | 2025-04-16 15:25 | PC.NURSE ---
@[id number] verbal education administered to patient about cleaning labia before providing urine sample in cup. pt stated understanding and compliance.
[2025-04-16 20:13] VITALS: BP 102/61; PULSE 100; RESP 18; TEMP 36.8; O2SAT 99
[2025-04-17 05:47] VITALS: BP 119/76; PULSE 109; RESP 16; TEMP 36.9; O2SAT 98
--- NOTE | 2025-04-17 09:28 | CTR_ITS ---
PROCEDURE INFORMATION: Exam: CT Abdomen And Pelvis Without Contrast Exam date and time: 04/17/2025 1:38 PM Age: 44 years old Clinical indication: Nausea and vomiting; Additional info: N/v and pain unrelieved by gi cocktail TECHNIQUE: Imaging protocol: Computed tomography of the abdomen and pelvis without contrast. Radiation optimization: All CT scans at this facility use at least one of these dose optimization techniques: automated exposure control; mA and/or kV adjustment per patient size (includes targeted exams where dose is matched to clinical indication); or iterative reconstruction. COMPARISON: CR (CHEST, ) 04/09/2025 5:02 PM RADIATION DOSE METRICS: Total DLP (mGy-cm): 457.13 FINDINGS: Lungs: Clear lung bases. Liver: Unremarkable unenhanced appearance of the liver. Gallbladder and biliary ducts: Normal. No calcified stones. No biliary ductal dilation. Pancreas: Normal. No pancreatic ductal dilation. Spleen: Normal. No splenomegaly. Adrenal glands: Normal. No adrenal mass. Kidneys and ureters: Nonobstructing left renal stones. There are 2 punctate 1-2 mm stones lower pole and 2 punctate 1-2 mm stones upper pole. No hydroureter. No ureteral calculi appreciated. Stomach and bowel: Unremarkable. No bowel obstruction. No mucosal thickening. Appendix: No evidence of appendicitis. Intraperitoneal space: No free intraperitoneal air. Vasculature: Unremarkable. No abdominal aortic aneurysm. Lymph nodes: Unremarkable. No enlarged lymph nodes. Urinary bladder: Urinary bladder decompressed. Reproductive: Unremarkable as visualized. Bones/joints: Unremarkable. No acute fracture. Soft tissues: Unremarkable. Other findings: The lack of IV contrast limits the evaluation of the solid organs. CT/CT abdomen pelvis wo con [id number] IMPRESSION: Several nonobstructing left renal stones. No acute abnormality in the abdomen or pelvis.
--- NOTE | 2025-04-17 11:10 | P.PN_ITS ---
Subjective 2 Subjective: The patient is a 44-year-old female who was transferred to the emergency department by law enforcement after appearing in front of the theater set production designer on this day of April 09, 2025. Has been relayed to me, that the patient may have been making suicidal statements. During my encounter with the patient, she is quite withdrawn almost catatonic. She speaks minimally and very softly. Unfortunately because of this, I am unable to obtain further history of present illness. She presents for further evaluation I have explained to the patient (if they are coherent, able to comprehend, and/or are communicative) and/or their family member(s), friend(s), guardian(s), and/or other individual(s) present on the patient?s behalf (if present) the patient?s current medical condition, the patient?s current plan of care, and I have answered all questions posed to me. 04/10/25: The altered mental status or c at[place] is apparently resolved however, treatment of the high anion gap, with pH of 7.3 upon presentation. BMP monitoring with possible DC 04/11/25. Otherwise, awaiting further advice/recommendation from psychiatry. 04/11/25: Mild hypokalemia corrected wit h 50 mEq of sodium potassium chloride infusion, plus one-time dose of oral medication. Given the mention of suicidal ideation, she was put in a one-to-one sitter. Patient was seen in-consult by the psychiatrist, who recommended inpatient admission to the psych unit for major depressive disorder with suicidal ideation when medically stable/cleared. Given return to baseline medically, and all metabolic and electrolyte derangements having been corrected, patient therefore deemed medically fit for onward transfer/discharge today to inpatient psych unit. 04/12/25: Mild infected finger. DS Bactr im x 4 days. Keep wound clean and dry at most times. Local wound dressing/covering otherwise recommended. Patient reassured; the wound is very likely to heal within the next week plus without any significant complications. Going forward: Hospitalist will continue to follow peripherally as needed. 04/13/25-04/15/25: Medically managed - P sych as primary attending. 04/16/25: Hospitalist service was consul priscila for c/o finger wound infection in which patient was taking bactrim. Bactrim was d/c due to persistent complaint of acute on chronic intermittent burning pain (duration for months) located in her chest w/ associated s/s of abd pain/burning that radiates to the back and left shoulder, and N/V. OSH gastrologist had concern for gastritis - Denies report of endoscopy. Denies NSAID use. Endorses family hx of stomach cancer. Endorses unknown quantity of Vodka with juice, persistent smoking, and frequent marijuana use. GI cocktail added to alleviate symptoms. 04/17/25: Upon assessment, GI cocktail w orked for a few hours before s/s reoccured. Admits food intolerance and persistent nausea and vomiting of clear liquids. CT abdomen pelvis now pending. Vitals/I&O/Wt Last Vital Signs Temp 98.5 F 04/17/25 05:47 Pulse 109 H 04/17/25 05:47 Resp 16 04/17/25 05:47 BP 119/76 04/17/25 05:47 Pulse Ox 98 04/17/25 05:47 O2 Del Method Room Air 04/17/25 05:47 04/16/25 04/17/25 04/17/25 22:59 06:59 14:59 Intake Total 800 / 920 Balance 800 / 920 Physical Exam 2 Narrative: General: A&O x4, HEENT: Normocephalic, atraumatic, grossly unremarkable exam Cardio: NSR, normal S1-S2 without any murmurs, rubs, or gallops and JVD normal Respiratory: Clear on auscultation without any wheezes, stridor, rhonchi GI: Abd soft, non-distended, normo-active bowel sounds present Neuro: AOx3, no unilateral weakness or facial asymmetry, no speech deficits Behavior: appeared in discomfort, mildly anxious Extremities: right finger wound with healing open lesion, no drainage, no s/s of infection Data 04/16/25 08:27 04/16/25 08:27 A&P Assessment and plan 1. Gastritis: - GI cocktail x1 yesterday - Pantoprazole 40 mg daily in the morning (started 04/16/25) - Famotidine 20 mg daily in the evening (started 04/16/25) - Sucralfate 1 g QID (started 04/16/25) - Continue to monitor for abdominal pain, if not improving then will consider CT of the abdomen - CT abdomen pelvis added 2. Abdominal pain: Abdominal pain due to above suspected gastritis Liver enzymes WNL 3. Acute hypokalemia: - yesterday K 3.3 and Mag 2.4 - repleted KCL PO yesterday - repeat K+ pending 4. Dysuria: Reports dysuria and suprapubic discomfort - UA - Pain management 5. Suicidal ideation: - PTSD, MDD - psychiatry primary, managing PDMP PDMP Reviewed: Not Reviewed Attestations 2 Medical Necessity Statement*: Patient admitted for apparent severe clinical condition, as outlined in the Assessment & Plan section above. Patient has had multiple midnight stays to appropriately treat and optimally control above-named clinical conditions. Possible discharge in 1-2 days once stable. Diagnoses Gastritis K29.70 Abdominal pain R10.9 Acute hypokalemia E87.6 Dysuria R30.0 Suicidal ideation R45.851 Time Spent (min) 70
--- NOTE | 2025-04-17 13:34 | PC.NURSE ---
pt off unit for ct accompanied by security and it integration architect
[2025-04-17] MEDS: iohexol 350 mg/mL 500 mL Btl (per mL) PO (13:47)
[2025-04-17 14:00] VITALS: BP 133/86; PULSE 100; RESP 16; TEMP 36.6; O2SAT 100
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
--- NOTE | 2025-04-17 19:31 | P.NPUPN_ITS ---
Subjective NPU 2 Subjective: Patient presented today reporting that she is doing okay. She reports she is doing better certainly and that she was doing when she got here. She described the events that have led to some of her challenges including the loss of her child in addition to the loss of a sibling. We discussed continuing the changes that her Dr. Juan have made and that we will likely will begin talking about discharge at the beginning of the week. She denied any side effects to her medication. Mental Status Exam 2 MSE Comments: The patient is an anxious -[place] female who appeared her stated age who was lying down in her room in moderate distress. Her gait was within normal limits. Her speech was normal in regards to rate, rhythm, and prosody. Her hygiene was fair. There was no evidence of any abnormal involuntary motor movements, tics, or tremors appreciated. She was alert and oriented to person, place, and time today. Her mood was described as depressed. Her affect was restricted in range and mood congruent. Her thought process was linear, logical, and goal-directed. Her thought content revealed contingent suicidal ideation and denied homicidal ideation currently. There was no evidence of any delusional thinking. She did not appear to be responding to internal stimuli. Her attention span appeared adequate. Her insight appeared limited. Her judgment was poor. Her impulse control appeared poor. She was alert and oriented to person, place and time. Vitals/I&O/Wt Last Vital Signs Temp 98.4 F 04/17/25 20:33 Pulse 100 04/17/25 20:33 Resp 17 04/17/25 20:33 BP 138/85 04/17/25 20:33 Pulse Ox 99 04/17/25 20:33 O2 Del Method Room Air 04/17/25 20:33 Data NPU 04/16/25 08:27 04/16/25 08:27 A&P Assessment and plan 1. MDD (major depressive disorder), recurrent severe, without psychosis: 2. PTSD (post-traumatic stress disorder): 3. Suicidal ideation: Plan: 44-year-old female presented on a 96-hour hold with a significant history of PTSD and depression reporting a recent exacerbation of PTSD symptoms with dissociative symptoms. #1. Monitor for dissociation, clarify legal issues, patient to return [facility] stabilization. #2. continue to evaluate under 96 hour hold #3. Continue zoloft 75mg daily and continue risperidone 1mg at night. #4. Attempt to gather collateral information including previous medication trials and previous hospitalization at [facility] in 2020. #5. Continue klonopin .25mg bid for anxiety. #6. Appreciate medical consult to help regarding nausea and vomiting. PDMP PDMP Reviewed: Not Reviewed Involuntary Hold Information 2 Hold Status: Legal Status: 96 Hour Hold Date/Time Hold Expires: 04/15/25 @ 15:10 Attestations NPU 2 Medical Necessity Statement*: Inpatient psychiatric hospitalization is medically necessary and deemed to be the clinically appropriate intervention at this time.? Medications will be initiated and adjusted as clinically indicated. The patient?s likely length of stay is 4-6 days. Coding Level of Care Code Acute Code for g Fwd Diagnoses MDD (major depressive disorder), recurrent severe, without psychosis F33.2 PTSD (post-traumatic stress disorder) F43.10 Suicidal ideation R45.85
[2025-04-17 20:33] VITALS: BP 138/85; PULSE 100; RESP 17; TEMP 36.9; O2SAT 99
[2025-04-18 05:17] VITALS: BP 116/76; PULSE 115; RESP 20; O2SAT 99
--- NOTE | 2025-04-18 05:17 | PC.NURSE ---
pulse 115 and resp 20 nurse notified
--- NOTE | 2025-04-18 07:48 | P.PN_ITS ---
Subjective 2 Subjective: The patient is a 44-year-old female who was transferred to the emergency department by law enforcement after appearing in front of the county judge on this day of April 09, 2025. Has been relayed to me, that the patient may have been making suicidal statements. During my encounter with the patient, she is quite withdrawn almost catatonic. She speaks minimally and very softly. Unfortunately because of this, I am unable to obtain further history of present illness. She presents for further evaluation I have explained to the patient (if they are coherent, able to comprehend, and/or are communicative) and/or their family member(s), friend(s), guardian(s), and/or other individual(s) present on the patient?s behalf (if present) the patient?s current medical condition, the patient?s current plan of care, and I have answered all questions posed to me. 04/10/25: The altered mental status or c atatonia is apparently resolved however, treatment of the high anion gap, with pH of 7.3 upon presentation. BMP monitoring with possible DC 04/11/25. Otherwise, awaiting further advice/recommendation from psychiatry. 04/11/25: Mild hypokalemia corrected wit h 50 mEq of sodium potassium chloride infusion, plus one-time dose of oral medication. Given the mention of suicidal ideation, she was put in a one-to-one sitter. Patient was seen in-consult by the psychiatrist, who recommended inpatient admission to the psych unit for major depressive disorder with suicidal ideation when medically stable/cleared. Given return to baseline medically, and all metabolic and electrolyte derangements having been corrected, patient therefore deemed medically fit for onward transfer/discharge today to inpatient psych unit. 04/12/25: Mild infected finger. DS Bactr im x 4 days. Keep wound clean and dry at most times. Local wound dressing/covering otherwise recommended. Patient reassured; the wound is very likely to heal within the next week plus without any significant complications. Going forward: Hospitalist will continue to follow peripherally as needed. 04/13/25-04/15/25: Medically managed - P sych as primary attending. 04/16/25: Hospitalist service was consul priscila for c/o finger wound infection in which patient was taking bactrim. Bactrim was d/c due to persistent complaint of acute on chronic intermittent burning pain (duration for months) located in her chest w/ associated s/s of abd pain/burning that radiates to the back and left shoulder, and N/V. OS gastrologist had concern for gastritis - Denies report of endoscopy. Denies NSAID use. Endorses family hx of stomach cancer. Endorses unknown quantity of Vodka with juice, persistent smoking, and frequent marijuana use. GI cocktail added to alleviate symptoms. 04/17/25: Upon assessment, GI cocktail w orked for a few hours before s/s reoccured. Admits food intolerance and persistent nausea and vomiting of clear liquids. CT abdomen pelvis now pending. 04/18/25: Imaging showed multiple non-ob structing renal stones. She can only keep clear liquid down. Endorses headache, dizziness, and generally feeling dehydrated. LR bolus and continuous along with Vitamin B, C, D + zinc ordered. Otherwise stable. Per Psychiatry notes, patient likely will begin talking about discharge at the beginning of the week . Vitals/I&O/Wt Last Vital Signs Temp 98.4 F 04/17/25 20:33 Pulse 115 H 04/18/25 05:17 Resp 20 H 04/18/25 05:17 BP 116/76 04/18/25 05:17 Pulse Ox 99 04/18/25 05:17 O2 Del Method Room Air 04/18/25 05:17 Physical Exam 2 Narrative: General: A&O x4, HEENT: Normocephalic, atraumatic, grossly unremarkable exam Cardio: NSR, normal S1-S2 without any murmurs, rubs, or gallops and JVD normal Respiratory: Clear on auscultation without any wheezes, stridor, rhonchi GI: Abd soft, non-distended, normo-active bowel sounds present Neuro: AOx3, no unilateral weakness or facial asymmetry, no speech deficits Behavior: appeared in discomfort, mildly anxious Extremities: right finger wound with healing open lesion, no drainage, no s/s of infection Data 04/18/25 08:27 04/18/25 08:27 A&P Assessment and plan 1. Gastritis: - GI cocktail x1 yesterday - Pantoprazole 40 mg daily in the morning (started 04/16/25) - Famotidine 20 mg daily in the evening (started 04/16/25) - Sucralfate 1 g QID (started 04/16/25) - Continue to monitor for abdominal pain, if not improving then will consider CT of the abdomen - CT abdomen pelvis - multiple non obstructing stones - LR and vitamins added for support 2. Abdominal pain: Abdominal pain due to above suspected gastritis Liver enzymes WNL 3. Acute hypokalemia: - yesterday K 3.3 and Mag 2.4 - repleted KCL PO yesterday - repeat labs pending 4. Dysuria: Reports dysuria and suprapubic discomfort - UA - Pain management 5. Suicidal ideation: - PTSD, MDD - Psychiatry primary, managing PDMP PDMP Reviewed: Not Reviewed Attestations 2 Medical Necessity Statement*: Patient has had multiple midnight stays to appropriately treat and optimally control above-named clinical conditions. Per Psychiatry notes, patient likely will begin talking about discharge at the beginning of the week . Diagnoses Gastritis K29.70 Abdominal pain R10.9 Acute hypokalemia E87.6 Dysuria R30.0 Suicidal ideation R45.851 Time Spent (min) 60
[2025-04-18] MEDS: lactobacillus 1 Tablet 1 TAB PO (08:10)
[2025-04-18 08:32] LABS: Base Excess VBG 5.8 mmol/L (-3.0-3.0); Blood Gas Sample Type Venous; HCO3 VBG 28.1 mmol/L (24-28); PCO2 VBG 32.6 mmHg (41-51); PO2 VBG 70.0 mmHg (25-40); Venous Blood Gas Hematocrit 42.4 % (37-47); pH VBG 7.54 (7.32-7.42)
[2025-04-18 08:49] LABS: Hematocrit 41.8 % (36-47); Hemoglobin 13.00 g/dL (11.27-16.99); Mean Corpuscular HGB Conc 31.1 g/dL (30-55); Mean Corpuscular Hemoglobin 26.1 pg (27-33); Mean Corpuscular Volume 83.9 fl (85-98); Nucleated Red Blood Cells % 0 %; Platelet Count 475 10^3/cmm (157-399); Red Blood Count 4.98 10^6/uL (3.85-5.65); White Blood Count 11.83 10^3/uL (3.29-11.43)
[2025-04-18 09:17] LABS: Alanine Aminotransferase 23 U/L (0-33); Albumin Level 4.6 g/dL (3.5-5.2); Alkaline Phosphatase 76 U/L (35-105); Anion Gap 16.2 (5-19); Aspartate Amino Transferase 16 U/L (0-32); Blood Urea Nitrogen 11 mg/dL (6-20); Calcium 9.8 mg/dL (8.5-10.5); Carbon Dioxide 26 mmol/L (22-29); Chloride 94 mmol/L (98-107); Globulin 3.2 g/dL (1.3-4.6); Glucose 127 mg/dL (65-115); Magnesium 2.3 mg/dL (1.7-2.3); Osmolality Calculated 277 mOsm/kg (285-295); Potassium 3.2 mmol/L (3.5-5.1); Sodium 133 mmol/L (136-145); Total Protein 7.8 g/dL (6.6-8.7)
[2025-04-18] MEDS: b-complex-vitamin c Tablet 1 EACH PO (10:57)
[2025-04-18 13:37] VITALS: BP 126/84; PULSE 104; RESP 17; TEMP 36.6; O2SAT 99
--- NOTE | 2025-04-18 18:05 | P.NPUPN_ITS ---
Subjective NPU 2 Subjective: Patient presented today reporting that she was doing okay but really struggling with her pain and her medical comorbidities. She reports she is tolerating the medication fine but she is trying to keep her liquid intake up and did get a bolus of fluid secondary to diagnosis of renal stones. We discussed her keeping her fluid up and avoiding transfer to the medical side if we can manage her pain and issues on the unit. We did discuss that she would return to the unit after that if indicated. She denied any side effects to the medication but endorsed that her pain was being undertreated. Mental Status Exam 2 MSE Comments: The patient is an anxious -[place] female who appeared her stated age who was lying down in her room in moderate distress. Her gait was within normal limits. Her speech was normal in regards to rate, rhythm, and prosody. Her hygiene was fair. There was no evidence of any abnormal involuntary motor movements, tics, or tremors appreciated. She was alert and oriented to person, place, and time today. Her mood was described as okay I guess but in pain. Her affect was restricted in range and mood congruent. Her thought process was linear, logical, and goal-directed. Her thought content revealed contingent suicidal ideation and denied homicidal ideation currently. There was no evidence of any delusional thinking. She did not appear to be responding to internal stimuli. Her attention span appeared adequate. Her insight appeared limited. Her judgment was poor. Her impulse control appeared poor. She was alert and oriented to person, place and time. Vitals/I&O/Wt Last Vital Signs Temp 98.4 F 04/18/25 20:17 Pulse 102 H 04/18/25 20:17 Resp 18 04/18/25 20:17 BP 139/67 04/18/25 20:17 Pulse Ox 99 04/18/25 20:17 O2 Del Method Room Air 04/18/25 20:17 Weight last 48 hrs Weight 74.503 kg Data NPU 04/18/25 08:27 04/18/25 08:27 A&P Assessment and plan 1. MDD (major depressive disorder), recurrent severe, without psychosis: 2. PTSD (post-traumatic stress disorder): 3. Suicidal ideation: Plan: 44-year-old female presented on a 96-hour hold with a significant history of PTSD and depression reporting a recent exacerbation of PTSD symptoms with dissociative symptoms. 1. Monitor for dissociation, clarify legal issues, patient to return to retirement after stabilization. 2. continue to evaluate under 96 hour hold 3. Continue zoloft 75mg daily and continue risperidone 1mg at night. 4. Attempt to gather collateral information including previous medication trials and previous hospitalization at [facility] in 2019. 5. Continue klonopin .25mg bid for anxiety. 6. Appreciate medical consult to help regarding nausea and vomiting. Will monitor recommendations and make changes as indicated. PDMP PDMP Reviewed: Not Reviewed Involuntary Hold Information 2 Hold Status: Legal Status: 96 Hour Hold Date/Time Hold Expires: 04/15/25 @ 15:10 Attestations NPU 2 Medical Necessity Statement*: Inpatient psychiatric hospitalization is medically necessary and deemed to be the clinically appropriate intervention at this time.? Medications will be initiated and adjusted as clinically indicated. The patient?s likely length of stay is 3-5 days. Coding Level of Care Code Acute Code for g Fwd Diagnoses MDD (major depressive disorder), recurrent severe, without psychosis F33.2 PTSD (post-traumatic stress disorder) F43.10 Suicidal ideation R45.852
[2025-04-18 19:35] LABS: Base Excess VBG 5.0 mmol/L (-3.0-3.0); Blood Gas Sample Type Venous; HCO3 VBG 29.1 mmol/L (24-28); PCO2 VBG 40.4 mmHg (41-51); PO2 VBG 34.2 mmHg (25-40); Venous Blood Gas Hematocrit 37.5 % (37-47); pH VBG 7.47 (7.32-7.42)
[2025-04-18 20:17] VITALS: BP 139/67; PULSE 102; RESP 18; TEMP 36.9; O2SAT 99
[2025-04-18 21:09] VITALS: BMI 28.2
[2025-04-19 06:00] VITALS: BP 136/74; PULSE 100; RESP 16; O2SAT 92
--- NOTE | 2025-04-19 06:38 | PC.NURSE ---
pt ref temp
[2025-04-19 08:48] LABS: Hematocrit 38.1 % (36-47); Hemoglobin 11.40 g/dL (11.27-16.99); Mean Corpuscular HGB Conc 29.9 g/dL (30-55); Mean Corpuscular Hemoglobin 25.9 pg (27-33); Mean Corpuscular Volume 86.6 fl (85-98); Nucleated Red Blood Cells % 0 %; Platelet Count 342 10^3/cmm (157-399); Red Blood Count 4.40 10^6/uL (3.85-5.65); White Blood Count 6.45 10^3/uL (3.29-11.43)
[2025-04-19 08:55] LABS: Base Excess VBG 2.9 mmol/L (-3.0-3.0); Blood Gas Sample Type Not specified; HCO3 VBG 27.1 mmol/L (24-28); PCO2 VBG 39.4 mmHg (41-51); PO2 VBG 44.0 mmHg (25-40); Venous Blood Gas Hematocrit 37.7 % (37-47); pH VBG 7.45 (7.32-7.42)
--- NOTE | 2025-04-19 09:07 | P.PN_ITS ---
Subjective 2 Subjective: The patient is a 44-year-old female who was transferred to the emergency department by law enforcement after appearing in front of the co founder and cto on this day of April 09, 2025. Has been relayed to me, that the patient may have been making suicidal statements. During my encounter with the patient, she is quite withdrawn almost catatonic. She speaks minimally and very softly. Unfortunately because of this, I am unable to obtain further history of present illness. She presents for further evaluation I have explained to the patient (if they are coherent, able to comprehend, and/or are communicative) and/or their family member(s), friend(s), guardian(s), and/or other individual(s) present on the patient?s behalf (if present) the patient?s current medical condition, the patient?s current plan of care, and I have answered all questions posed to me. 04/10/25: The altered mental status or c atatonia is apparently resolved however, treatment of the high anion gap, with pH of 7.3 upon presentation. BMP monitoring with possible DC 04/11/25. Otherwise, awaiting further advice/recommendation from psychiatry. 04/11/25: Mild hypokalemia corrected wit h 50 mEq of sodium potassium chloride infusion, plus one-time dose of oral medication. Given the mention of suicidal ideation, she was put in a one-to-one sitter. Patient was seen in-consult by the psychiatrist, who recommended inpatient admission to the psych unit for major depressive disorder with suicidal ideation when medically stable/cleared. Given return to baseline medically, and all metabolic and electrolyte derangements having been corrected, patient therefore deemed medically fit for onward transfer/discharge today to inpatient psych unit. 04/12/25: Mild infected finger. DS Bactr im x 4 days. Keep wound clean and dry at most times. Local wound dressing/covering otherwise recommended. Patient reassured; the wound is very likely to heal within the next week plus without any significant complications. Going forward: Hospitalist will continue to follow peripherally as needed. 04/13/25-04/15/25: Medically managed - P sych as primary attending. 04/16/25: Hospitalist service was consul priscila for c/o finger wound infection in which patient was taking bactrim. Bactrim was d/c due to persistent complaint of acute on chronic intermittent burning pain (duration for months) located in her chest w/ associated s/s of abd pain/burning that radiates to the back and left shoulder, and N/V. OSH gastrologist had concern for gastritis - Denies report of endoscopy. Denies NSAID use. Endorses family hx of stomach cancer. Endorses unknown quantity of Vodka with juice, persistent smoking, and frequent marijuana use. GI cocktail added to alleviate symptoms. 04/17/25: Upon assessment, GI cocktail w orked for a few hours before s/s reoccured. Admits food intolerance and persistent nausea and vomiting of clear liquids. CT abdomen pelvis now pending. 04/18/25: Imaging showed multiple non-ob structing renal stones. She can only keep clear liquid down. Endorses headache, dizziness, and generally feeling dehydrated. LR bolus and continuous along with Vitamin B, C, D + zinc ordered. Otherwise stable. Per Psychiatry notes, patient likely will begin talking about discharge at the beginning of the week . 04/19/25: Patient received 2L bolus of l actated ringers and was given K+ repletion yesterday afternoon. Today, patient AAO and sitting up at nurses station in Psych unit at time of interview. She has a roommate now that she gets along with well. Reports feeling improved from dehydration symptoms. Reports flank pain level rated 8.5/10 - pain management ordered; [place] 5/325. Psychiatry following - per notes, patient should be ok to transfer for her remaining medical management. Business Intelligence Manager Neyda advises there is a med- surg room with sitter available. Planning IV insertion for further meds and fluid resuscitation. Additional IV morphine pain management once patient is transferred to floor. Appreciate recommendations from Business Intelligence Manager and Psychiatry. Vitals/I&O/Wt Last Vital Signs Temp 98.4 F 04/18/25 20:17 Pulse 100 04/19/25 06:00 Resp 16 04/19/25 06:00 BP 136/74 04/19/25 06:00 Pulse Ox 92 04/19/25 06:00 O2 Del Method Room Air 04/19/25 06:00 Weight last 48 hrs Weight 74.503 kg Physical Exam 2 Narrative: General: A&O x4, HEENT: Normocephalic, atraumatic, grossly unremarkable exam Cardio: NSR, normal S1-S2 without any murmurs, rubs, or gallops and JVD normal Respiratory: Clear on auscultation without any wheezes, stridor, rhonchi GI: Abd soft, non-distended, flank pain radiating to left side and back Neuro: AOx3, no unilateral weakness or facial asymmetry, no speech deficits Behavior: appeared in discomfort, mildly anxious Extremities: right finger wound with healing open lesion, no drainage, no s/s of infection Data 04/19/25 08:40 04/19/25 08:40 A&P Assessment and plan 1. Gastritis: - GI cocktail x1 yesterday - Pantoprazole 40 mg daily in the morning (started 04/16/25) - Famotidine 20 mg daily in the evening (started 04/16/25) - Sucralfate 1 g QID (started 04/16/25) - Continue to monitor for abdominal pain, if not improving then will consider CT of the abdomen - CT abdomen pelvis - multiple non obstructing stones - LR and vitamins added for support - VBG improved - Pain management planning, PO [place], IV insertion - Planning for patient to transfer to floor from Neuro Psych unit 2. Abdominal pain: Abdominal pain due to above suspected gastritis Liver enzymes WNL 3. Acute hypokalemia: - yesterday K 3.3 and Mag 2.4 - repleted KCL PO yesterday - repeat labs pending 4. Dysuria: Reports dysuria and suprapubic discomfort - UA - Pain management 5. Suicidal ideation: - PTSD, MDD - Psychiatry primary, managing PDMP PDMP Reviewed: Not Reviewed Attestations 2 Medical Necessity Statement*: Continued hospitalization for 2 midnights expected s/p trasfer from Neuro Psych unit to Med Surg floor for medical management of non-obstructive kidney stones, dehydration, and pain management. Diagnoses Gastritis K29.70 Abdominal pain R10.9 Acute hypokalemia E87.6 Dysuria R30.0 Suicidal ideation R45.851 Time Spent (min) 65
[2025-04-19 09:14] LABS: Alanine Aminotransferase 18 U/L (0-33); Albumin Level 4.2 g/dL (3.5-5.2); Alkaline Phosphatase 68 U/L (35-105); Ammonia 23 umol/L (11-51); Anion Gap 15.8 (5-19); Aspartate Amino Transferase 14 U/L (0-32); Blood Urea Nitrogen 5 mg/dL (6-20); Calcium 9.1 mg/dL (8.5-10.5); Carbon Dioxide 26 mmol/L (22-29); Chloride 99 mmol/L (98-107); Globulin 2.5 g/dL (1.3-4.6); Glucose 110 mg/dL (65-115); Osmolality Calculated 282 mOsm/kg (285-295); Potassium 3.8 mmol/L (3.5-5.1); Sodium 137 mmol/L (136-145); Total Protein 6.7 g/dL (6.6-8.7)
[2025-04-19 09:15] LABS: Magnesium 2.1 mg/dL (1.7-2.3)
--- NOTE | 2025-04-19 10:21 | PC.NURSE ---
Pt. refused Zoloft, zinc, and vit D today.
--- NOTE | 2025-04-19 14:54 | PC.NURSE ---
wil milking system installer, ok with no iv currently. if pt requires ivp pain meds, iv can be inserted.
[2025-04-19] MEDS: acetaminophen-codeine 300-30mg Tablet 1 TAB PO ×2 (16:12→22:28)
[2025-04-19 16:56] VITALS: BP 109/77; PULSE 98; RESP 16; TEMP 36.9; O2SAT 98
[2025-04-19 20:00] VITALS: BP 118/72; PULSE 105; RESP 16; TEMP 36.6; O2SAT 100
[2025-04-19 22:00] VITALS: BP 115/74; PULSE 90; RESP 16; TEMP 36.4; O2SAT 99
[2025-04-19 23:40] VITALS: BP 115/74; PULSE 90; RESP 16; TEMP 36.4; O2SAT 99
[2025-04-20] VITALS (9 sets, daily range): BP systolic 109–128; BP diastolic 61–86; PULSE 88–117; RESP 14–17; TEMP 36.5–37; O2SAT 94–100
[2025-04-20] MEDS: acetaminophen-codeine 300-30mg Tablet 1 TAB PO (05:11)
--- NOTE | 2025-04-20 05:14 | PC.NURSE ---
pt c/o nausea and pain to stomach from eating too much , took pain med and zofran, wanting to wait until later to take the other meds scheduled for 0500
--- NOTE | 2025-04-20 09:00 | P.PN_ITS ---
Subjective 2 Subjective: Rica Chandler is a 44-year-old female who was transferred to the emergency department by law enforcement after appearing in front of the needle control cheniller on April 09, 2025. It was relayed to the admitting MD that she may have been making suicidal statements. During their encounter with the patient, she was withdrawn almost catatonic. She speaks minimally and very softly. Unfortunately because of this, I am unable to obtain further history of present illness. She presents for further evaluation (Per note from 04/09/25 -- 04/10/25: The altered mental status or c atatonia is apparently resolved however, treatment of the high anion gap, with pH of 7.3 upon presentation. BMP monitoring with possible DC 04/11/25. Otherwise, awaiting further advice/recommendation from psychiatry. 04/11/25: Mild hypokalemia corrected wit h 50 mEq of sodium potassium chloride infusion, plus one-time dose of oral medication. Given the mention of suicidal ideation, she was put in a one-to-one sitter. Patient was seen in-consult by the psychiatrist, who recommended inpatient admission to the psych unit for major depressive disorder with suicidal ideation when medically stable/cleared. Given return to baseline medically, and all metabolic and electrolyte derangements having been corrected, patient therefore deemed medically fit for onward transfer/discharge today to inpatient psych unit. 04/12/25: Mild infected finger. DS Bactr im x 4 days. Keep wound clean and dry at most times. Local wound dressing/covering otherwise recommended. Patient reassured; the wound is very likely to heal within the next week plus without any significant complications. Going forward: Hospitalist will continue to follow peripherally as needed. 04/13/25-04/15/25: Medically managed - P sych as primary attending. 04/16/25: Hospitalist service was consul priscila for c/o finger wound infection in which patient was taking bactrim. Bactrim was d/c due to persistent complaint of acute on chronic intermittent burning pain (duration for months) located in her chest w/ associated s/s of abd pain/burning that radiates to the back and left shoulder, and N/V. OSH gastrologist had concern for gastritis - Denies report of endoscopy. Denies NSAID use. Endorses family hx of stomach cancer. Endorses unknown quantity of Vodka with juice, persistent smoking, and frequent marijuana use. GI cocktail added to alleviate symptoms. 04/17/25: Upon assessment, GI cocktail w orked for a few hours before s/s reoccured. Admits food intolerance and persistent nausea and vomiting of clear liquids. CT abdomen pelvis now pending. 04/18/25: Imaging showed multiple non-ob structing renal stones. She can only keep clear liquid down. Endorses headache, dizziness, and generally feeling dehydrated. LR bolus and continuous along with Vitamin B, C, D + zinc ordered. Otherwise stable. Per Psychiatry notes, patient likely will begin talking about discharge at the beginning of the week . 04/19/25: Patient received 2L bolus of l actated ringers and was given K+ repletion yesterday afternoon. Today, patient AAO and sitting up at nurses station in Psych unit at time of interview. She has a roommate now that she gets along with well. Reports feeling improved from dehydration symptoms. Reports flank pain level rated 8.5/10 - pain management ordered; [place] 5/325. Psychiatry following - per notes, patient should be ok to transfer for her remaining medical management. Credit Risk Officer Neyda advises there is a med- surg room with sitter available. Planning IV insertion for further meds and fluid resuscitation. Additional IV morphine pain management once patient is transferred to floor. Appreciate recommendations from Credit Risk Officer and Psychiatry. 04/20/25: Patient is in medsurg room in g in bed resting at time of interview, sitter at bedside. She was able to have visitation yesterday with her 8 year old daughter yesterday, and is in good spirits. Patient reports symptom improvement after fluids but says she still has pain and still feels somewhat dehydrated. She was able to eat solids last night including mashed potatoes, carrots, two sandwiches, and two ice creams > she had nausea and vomiting, likely from overdoing it after a spike in appetite. Educated patient to increase as tolerated gradually. Adjusting pain medication and continuous fluids. Potential conditional discharge tomorrow after assessment from Dr. Barry with Psychiatry. Vitals/I&O/Wt Last Vital Signs Temp 98.1 F 04/20/25 11:02 Pulse 98 04/20/25 11:02 Resp 15 04/20/25 11:02 BP 126/86 04/20/25 11:02 Pulse Ox 99 04/20/25 11:02 O2 Del Method Room Air 04/20/25 11:02 04/19/25 04/20/25 04/20/25 22:59 06:59 14:59 Output Total 200 / 200 Balance -200 / 840 Weight last 48 hrs Weight 73.482 kg Weight 74.503 kg Physical Exam 2 Narrative: General: A&O x4, HEENT: Normocephalic, atraumatic, grossly unremarkable exam Cardio: NSR, normal S1-S2 without any murmurs, rubs, or gallops and JVD normal Respiratory: Clear on auscultation without any wheezes, stridor, rhonchi GI: Abd soft, non-distended, flank pain radiating to left side and back Neuro: AOx3, no unilateral weakness or facial asymmetry, no speech deficits Behavior: appeared in discomfort, mildly anxious Data 04/19/25 08:40 04/19/25 08:40 A&P Assessment and plan 1. Gastritis: - GI cocktails - Pantoprazole 40 mg daily in the morning (started 04/16/25) - Famotidine 20 mg daily in the evening (started 04/16/25) - Sucralfate 1 g QID (started 04/16/25) - CT abdomen pelvis - multiple non obstructing stones - LR and vitamins added for support - VBG improved - Pain management planning, PO [place], IV insertion - Pt. transferred to floor from Neuro Psych unit 04/19/25 2. Abdominal pain: Abdominal pain due to above suspected gastritis Liver enzymes WNL Protonix and supportive management Gradual increase in diet as tolerated 3. Acute hypokalemia: - repleted KCL PO - repeat labs pending 4. Dysuria: Reported dysuria and suprapubic discomfort - UA - Pain management 5. Suicidal ideation: - PTSD, MDD - Psychiatry primary, managing PDMP PDMP Reviewed: Not Reviewed Attestations 2 Medical Necessity Statement*: Patient to have continued hospitalization for less than two midnights expected as we monitor pain and dehydration. Psych following, appreciate recommendations as always. Diagnoses Gastritis K29.70 Abdominal pain R10.9 Acute hypokalemia E87.6 Dysuria R30.0 Suicidal ideation R45.851 Time Spent (min) 70
[2025-04-20] MEDS: b-complex-vitamin c Tablet 1 EACH PO (10:19)
[2025-04-20] MEDS: morphine 4 mg/mL SDV 1 mL IVP ×3 (10:21→23:43)
[2025-04-21 03:39] VITALS: BP 103/66; PULSE 95; RESP 16; TEMP 36.7; O2SAT 97
[2025-04-21] MEDS: pantoprazole 40 mg SDV IVP (04:32)
[2025-04-21] MEDS: b-complex-vitamin c Tablet 1 EACH PO (04:38)
[2025-04-21 07:23] VITALS: BP 114/79; PULSE 87; RESP 16; TEMP 36.8; O2SAT 98
[2025-04-21] MEDS: acetaminophen-codeine 300-30mg Tablet 1 TAB PO (07:48)
[2025-04-21 08:25] LABS: Base Excess VBG 2.5 mmol/L (-3.0-3.0); Blood Gas Operator Identificat WALCI; Blood Gas Sample Type Venous; HCO3 VBG 26.7 mmol/L (24-28); PCO2 VBG 39.2 mmHg (41-51); PO2 VBG 36.4 mmHg (25-40); Venous Blood Gas Hematocrit 35.0 % (37-47); pH VBG 7.44 (7.32-7.42)
[2025-04-21 08:52] VITALS: RESP 18
[2025-04-21] MEDS: morphine 4 mg/mL SDV 1 mL IVP (08:52)
[2025-04-21 08:53] LABS: Alanine Aminotransferase 16 U/L (0-33); Albumin Level 3.9 g/dL (3.5-5.2); Alkaline Phosphatase 62 U/L (35-105); Anion Gap 15.9 (5-19); Aspartate Amino Transferase 12 U/L (0-32); Blood Urea Nitrogen 6 mg/dL (6-20); Calcium 8.8 mg/dL (8.5-10.5); Carbon Dioxide 24 mmol/L (22-29); Chloride 101 mmol/L (98-107); Globulin 2.2 g/dL (1.3-4.6); Glucose 88 mg/dL (65-115); Magnesium 2.0 mg/dL (1.7-2.3); Osmolality Calculated 281 mOsm/kg (285-295); Potassium 3.9 mmol/L (3.5-5.1); Sodium 137 mmol/L (136-145); Total Protein 6.1 g/dL (6.6-8.7)
--- NOTE | 2025-04-21 11:01 | P.DS_ITS ---
Discharge Providers Date of Admission: 04/11/25 13:47 Date of Discharge: April 21, 2025 Attending Provider at Admission: Sonja Montenegro DO Attending Provider at Discharge: Gracia Gonzalez, BRIM MOLDER, ELECTRICAL MECHANICAL TECHNICIAN Diagnoses at Discharge Discharge Diagnosis 1. Gastritis: Details from hospital stay: - GI cocktails - Pantoprazole 40 mg daily in the morning (started 04/16/25) - Famotidine 20 mg daily in the evening (started 04/16/25) - Sucralfate 1 g QID (started 04/16/25) - CT abdomen pelvis - multiple non obstructing stones - LR and vitamins added for support - VBG improved - Pain management planning, PO [place], IV insertion - Pt. transferred to floor from Neuro Psych unit 04/19/25 2. Abdominal pain: Details from hospital stay: Abdominal pain due to above suspected gastritis Liver enzymes WNL Protonix and supportive management Gradual increase in diet as tolerated 3. Acute hypokalemia: Details from hospital stay: - repleted KCL PO - repeat labs pending 4. Dysuria: Details from hospital stay: Reported dysuria and suprapubic discomfort - UA - Pain management 5. Suicidal ideation: Details from hospital stay: - PTSD, MDD - Psychiatry primary, managing Reason for Visit Reason for Visit: Altered mentation Hospital Course Hospital Course Rica Chandler is a 44-year-old female who was transferred to the emergency department by law enforcement after appearing in front of the bacteriologist industrial on April 09, 2025. It was relayed to the admitting MD that she may have been making suicidal statements. During their encounter with the patient, she was withdrawn almost catatonic. She speaks minimally and very softly. Unfortunately because of this, I am unable to obtain further history of present illness. She presents for further evaluation (Per note from 04/09/25 -- 04/10/25: The altered mental status or catatonia is apparently resolved however, treatment of the high anion gap, with pH of 7.3 upon presentation. BMP monitoring with possible DC 04/11/25. Otherwise, awaiting further advice/recommendation from psychiatry. 04/11/25: Mild hypokalemia corrected with 50 mEq of sodium potassium chloride infusion, plus one-time dose of oral medication. Given the mention of suicidal ideation, she was put in a one-to-one sitter. Patient was seen in-consult by the psychiatrist, who recommended inpatient admission to the psych unit for major depressive disorder with suicidal ideation when medically stable/cleared. Given return to baseline medically, and all metabolic and electrolyte derangements having been corrected, patient therefore deemed medically fit for onward transfer/discharge today to inpatient psych unit. 04/12/25: Mild infected finger. DS Bactrim x 4 days. Keep wound clean and dry at most times. Local wound dressing/covering otherwise recommended. Patient reassured; the wound is very likely to heal within the next week plus without any significant complications. Going forward: Hospitalist will continue to follow peripherally as needed. 04/13/25-04/15/25: Medically managed - Psych as primary attending. 04/16/25: Hospitalist service was consulted for c/o finger wound infection in which patient was taking bactrim. Bactrim was d/c due to persistent complaint of acute on chronic intermittent burning pain (duration for months) located in her chest w/ associated s/s of abd pain/burning that radiates to the back and left shoulder, and N/V. OSH gastrologist had concern for gastritis - Denies report of endoscopy. Denies NSAID use. Endorses family hx of stomach cancer. Endorses unknown quantity of Vodka with juice, persistent smoking, and frequent marijuana use. GI cocktail added to alleviate symptoms. 04/17/25: Upon assessment, GI cocktail worked for a few hours before s/s reoccured. Admits food intolerance and persistent nausea and vomiting of clear liquids. CT abdomen pelvis now pending. 04/18/25: Imaging showed multiple non-obstructing renal stones. She can only keep clear liquid down. Endorses headache, dizziness, and generally feeling dehydrated. LR bolus and continuous along with Vitamin B, C, D + zinc ordered. Otherwise stable. Per Psychiatry notes, patient likely will begin talking about discharge at the beginning of the week . 04/19/25: Patient received 2L bolus of lactated ringers and was given K+ repletion yesterday afternoon. Today, patient AAO and sitting up at nurses station in Psych unit at time of interview. She has a roommate now that she gets along with well. Reports feeling improved from dehydration symptoms. Reports flank pain level rated 8.5/10 - pain management ordered; [place] 5/325. Psychiatry following - per notes, patient should be ok to transfer for her remaining medical management. Blender/Braze Applicator Neyda advises there is a med- surg room with sitter available. Planning IV insertion for further meds and fluid resuscitation. Additional IV morphine pain management once patient is transferred to floor. Appreciate recommendations from Blender/Braze Applicator and Psychiatry. 04/20/25: Patient is in medsurg room lying in bed resting at time of interview, sitter at bedside. She was able to have visitation yesterday with her 8 year old daughter yesterday, and is in good spirits. Patient reports symptom improvement after fluids but says she still has pain and still feels somewhat dehydrated. She was able to eat solids last night including mashed potatoes, carrots, two sandwiches, and two ice creams > she had nausea and vomiting, likely from overdoing it after a spike in appetite. Educated patient to increase as tolerated gradually. Adjusting pain medication and continuous fluids. Potential conditional discharge tomorrow after assessment from Dr. Barry with Psychi atry. 04/21/25: Primary MD for this encounter was Dr. Barry with Psychiatry Specialty. Patient had sitter secondary to suicidal ideation and MDD. I spoke with him throughout duration of stay and she was cleared to transition to the Medsurg unit, now ok to discharge from hospital. Dehydration managed with aggressive fluid resuscitation. Educated patient on passing renal stones and expected pain/discomfort. Pain is actively being managed and can be treated with PO medication. Case Management, Nursing Management, and Social Work notified. See discharge orders and instruction to follow up with PCP. Physical Exam Narrative: General: A&O x4, HEENT: Normocephalic, atraumatic, grossly unremarkable exam Cardio: NSR, normal S1-S2 without any murmurs, rubs, or gallops and JVD normal Respiratory: Clear on auscultation without any wheezes, stridor, rhonchi GI: Abd soft, non-distended, flank pain radiating to left side and back Neuro: AOx3, no unilateral weakness or facial asymmetry, no speech deficits Behavior: appeared in discomfort, mildly anxious Discharge Data Studies Completed and Pending Completed Studies During Hospitalization Category Date Time Status CT abdomen pelvis wo con [id number] Routine Cat Scan 04/17/25 09:[address] head wo con* [id number] Stat Cat Scan 04/09/25 17:02 Completed CTA head neck [CT angio headneck* [id number]] Stat Cat Scan 04/09/25 19:59 Completed XR chest 1V portable [id number] Stat Exams 04/09/25 17:02 Completed MR head wo con* [id number] Routine MRI 04/10/25 10:15 Completed CV. echo complete* [id number] Stat Ultrasound 04/09/25 19:59 Completed Pending at discharge Category Date Time Status VBG [Venous Blood Gas] Routine Lab 04/18/25 08:27 Results VBG [Venous Blood Gas] Routine Lab 04/21/25 08:21 Results VBG [Venous Blood Gas] Stat Lab 04/18/25 19:13 Results Radiology Impressions Chest X-Ray 04/09/25 17:02 IMPRESSION: No acute findings. Head CT 04/09/25 17:02 IMPRESSION: Possible infarct superior aspect of the right cerebellar hemisphere. Please correlate with history. No definite acute finding. ASSESSMENT: ASPECTS ([place] Stroke Program Early CT Score) is 10. ADDENDUM: 04/09/251929 Addendum: THIS REPORT CONTAINS FINDINGS THAT MAY BE CRITICAL TO PATIENT CARE. The findings were verbally communicated via telephone conference with SMITA NAVARRO at 7:29 PM [facility] on 04/09/2025. The findings were acknowledged and understood. Head/Neck CTA 04/09/25 19:59 IMPRESSION: There is no evidence of intracranial large vessel occlusion or aneurysm. IMPRESSION: There is no evidence of significant stenosis or occlusion in the carotid or vertebral arteries on either side of the neck REFERENCES: NASCET CRITERIA. The degree of stenosis in the cervical segment of the internal carotid artery is based on NASCET criteria. Normal is no stenosis. Mild is less than 50% stenosis. Moderate is 50-69% stenosis. Severe is 70% to 99% stenosis. Total occlusion is no detectable patent lumen. Head MRI 04/10/25 10:15 IMPRESSION: 1. Study limited by motion and movement artifact. 2. Normal diffusion imaging. No acute infarct. 3. No prior large infarcts or small vessel disease identified. Abdomen/Pelvis CT 04/17/25 09:28 IMPRESSION: Several nonobstructing left renal stones. No acute abnormality in the abdomen or pelvis. Laboratory Results WBC 6.45 10^3/uL (3.29-11.43) 11/30/25 08:40 RBC 4.40 10^6/uL (3.85-5.65) 04/19/25 08:40 Hgb 11.40 g/dL (11.27-16.99) 04/19/25 08:40 Hct 38.1 % (36-47) 04/19/25 08:40 MCV 86.6 fl (85-98) 04/19/25 08:40 MCH 25.9 pg (27-33) L 04/19/25 08:40 MCHC 29.9 g/dL (30-55) L 04/19/25 08:40 RDW 15.7 % (12.1-15.1) H 04/19/25 08:40 Plt Count 342 10^3/cmm (157-399) 04/19/25 08:40 MPV 9.5 fL (7.4-10.4) 04/19/25 08:40 Neut % (Auto) 67.2 % 04/19/25 08:40 Lymph % (Auto) 21.6 % 04/19/25 08:40 [place] % (Auto) 9.3 % 04/19/25 08:40 Eos % (Auto) 0.3 % 04/19/25 08:40 Baso % (Auto) 1.1 % 04/19/25 08:40 Neut # (Auto) 4.34 10^3/uL (1.8-7.7) 04/19/25 08:40 Lymph # (Auto) 1.4 10^3/uL (0.8-4.8) 04/19/25 08:40 Prentiss # (Auto) 0.6 10^3/uL (0.2-0.9) 04/19/25 08:40 Eos # (Auto) 0.0 10^3/uL (0.0-0.8) 04/19/25 08:40 Baso # (Auto) 0.1 10^3/uL (0.0-0.1) 04/19/25 08:40 Nucleated RBC % (auto) 0 % 04/19/25 08:40 Nucleated RBCs # 0.0 /100WBC 04/19/25 08:40 Specimen Type Venous 04/21/25 08:21 Sample Site Not Reportable 04/19/25 08:00 ABG pH 7.30 (7.35-7.45) L 04/09/25 21:00 ABG pCO2 23.5 mmHg (35-45) L 04/09/25 21:00 ABG pO2 102.0 mmHg (80.0-100.0) H 04/09/25 21:00 ABG PO2/FiO2 Ratio 485 04/09/25 21:00 ABG HCO3 11.4 mmol/L (22-26) L 04/09/25 21:00 ABG O2 Saturation 97.9 04/09/25 21:00 ABG Base Excess -13.6 mmol/L (-2.0-2.0) L 04/09/25 21:00 [place] Test N/a 04/21/25 08:21 VBG pH 7.44 (7.32-7.42) H 04/21/25 08:21 VBG pCO2 39.2 mmHg (41-51) L 04/21/25 08:21 VBG pO2 36.4 mmHg (25-40) 04/21/25 08:21 VBG HCO3 26.7 mmol/L (24-28) 04/21/25 08:21 VBG Base Excess 2.5 mmol/L (-3.0-3.0) 04/21/25 08:21 VBG Hematocrit 35.0 % (37-47) L 04/21/25 08:21 A-a O2 Gradient 2.1 mmHg (5-10) L 04/09/25 21:00 Hematocrit 28.9 % (37-47) L 04/09/25 21:00 Hgb O2 Saturation 96.0 % (95-100) 04/09/25 21:00 Carboxyhemoglobin 0.7 %THgb (0.4-20.1) 04/09/25 21:00 Methemoglobin 1.2 % (0.4-1.5) 04/09/25 21:00 Total Hemoglobin 9.4 g/dL (12-16) L 04/09/25 21:00 Sodium 137.0 mmol/L (131-143) 04/09/25 21:00 Potassium 3.4 mmol/L (3.5-5.0) L 04/09/25 21:00 Glucose 71.0 mg/dL (70-115) 04/09/25 21:00 Ionized Calcium 1.1 mmol/L (1.1-1.4) 04/09/25 21:00 O2 Delivery Device Room air 04/21/25 08:21 FiO2 21.0 % 04/21/25 08:21 [place]er ID Junior 04/21/25 08:21 Sodium 137 mmol/L (136-145) 04/21/25 08:21 Potassium 3.9 mmol/L (3.5-5.1) 04/21/25 08:21 Chloride 101 mmol/L (98-107) 04/21/25 08:21 Carbon Dioxide 24 mmol/L (22-29) 04/21/25 08:21 Anion Gap 15.9 (5-19) 04/21/25 08:21 BUN 6 mg/dL (6-20) 04/21/25 08:21 Creatinine 0.7 mg/dL (0.5-0.9) 04/21/25 08:21 GFR Calculation 111.0 mL/min (90-130) 04/21/25 08:21 Glucose 88 mg/dL (65-115) 04/21/25 08:21 POC Glucose 123 mg/dL (70-110) H 04/14/25 10:19 Calculated Osmolality 281 mOsm/kg (285-295) L 04/21/25 08:21 Lactic Acid 1.2 mmol/L (0.5-2.2) 04/09/25 17:18 Calcium 8.8 mg/dL (8.5-10.5) 04/21/25 08:21 Phosphorus 2.7 mg/dL (2.5-4.5) 04/09/25 20:12 Magnesium 2.0 mg/dL (1.7-2.3) 04/21/25 08:21 Total Bilirubin 0.3 mg/dL (0.15-1.2) 04/21/25 08:21 AST 12 U/L (0-32) 04/21/25 08:21 ALT 16 U/L (0-33) 04/21/25 08:21 Alkaline Phosphatase 62 U/L (35-105) 04/21/25 08:21 Ammonia 23 umol/L (11-51) 04/19/25 08:40 Total Protein 6.1 g/dL (6.6-8.7) L 04/21/25 08:21 Albumin 3.9 g/dL (3.5-5.2) 04/21/25 08:21 Globulin 2.2 g/dL (1.3-4.6) 04/21/25 08:21 Triglycerides 81 mg/dL (0-150) 04/10/25 04:58 Cholesterol 195 mg/dL (0-200) 04/10/25 04:58 LDL Cholesterol, Calc 92 mg/dL (50-129) 04/10/25 04:58 HDL Cholesterol 87 mg/dL (60-100) 04/10/25 04:58 LDL/HDL Ratio 1.06 RATIO (0.00-3.22) 04/10/25 04:58 Cholesterol/HDL Ratio 2.24 mg/dL (0.0-4.40) 04/10/25 04:58 Lipase 17 U/L (13-60) 04/16/25 08:27 Vitamin B12 642 pg/mL (232-1245) 04/09/25 20:12 Folate 16.0 ng/mL (4.8-37.3) 04/09/25 20:12 TSH 0.32 uIU/mL (0.27-4.20) 04/09/25 20:12 Free T4 1.66 ng/dL (0.82-1.77) 04/09/25 20:12 HCG, Qual Negative (Negative) 04/09/25 18:20 Urine Color Yellow (Yellow) 04/16/25 15:03 Urine Appearance Turbid (CLEAR) A 04/16/25 15:03 Urine pH 8.5 (5-7) A 04/16/25 15:03 Ur Specific [place] 1.020 (1.005-1.030) 04/16/25 15:03 Urine Protein 1+ (Negative) A 04/16/25 15:03 Urine Glucose (UA) Negative (Normal) 04/16/25 15:03 Urine Ketones 1+ (Negative) H 04/16/25 15:03 Urine Blood Negative (Negative) 04/16/25 15:03 Urine Nitrate Negative (Negative) 04/16/25 15:03 Urine Bilirubin Negative (Negative) 04/16/25 15:03 Urine Urobilinogen 1.0 mg/dL (Negative) 04/16/25 15:03 Ur Leukocyte Esterase Trace (Negative) A 04/16/25 15:03 Urine RBC 6-10 /hpf (0-2) 04/16/25 15:03 Urine WBC 0-5 /hpf (0-5) 04/16/25 15:03 Ur Squamous Epith Cells 0-5 /hpf (0-5) 04/16/25 15:03 Amorphous Sediment Not Reportable 04/16/25 15:03 Urine Bacteria None seen /hpf (NONE) 04/16/25 15:03 Hyaline Casts 1.21 /lpf 04/16/25 15:03 Salicylates 1.6 mg/dL (3-10) L 04/09/25 16:30 Urine Opiates Screen Positive ng/mL (Negative) H 04/09/25 18:20 Acetaminophen < 5.0 ug/mL (10-30) L 04/09/25 16:30 Ur Barbiturates Screen Negative ng/mL (Negative) 04/09/25 18:20 Ur Phencyclidine Scrn Negative ng/mL (Negative) 04/09/25 18:20 Ur Amphetamines Screen Negative ng/mL (Negative) 04/09/25 18:20 U Benzodiazepines Scrn Negative ng/mL (Negative) 04/09/25 18:20 Urine Cocaine Screen Negative ng/mL (Negative) 04/09/25 18:20 U Marijuana (THC) Screen Positive ng/mL (Negative) H 04/09/25 18:20 Ethyl Alcohol < 10 mg/dL (0-10) 04/09/25 16:30 RPR w/Rflx to Titer Non-reactive (NON-REACTIVE) 04/10/25 04:58 Hepatitis A IgM Ab Non-reactive (Nonreactive) 04/10/25 04:58 Hep Bs Antigen Non-reactive (Nonreactive) 04/10/25 04:58 Hep B Core IgM Ab Non-reactive (Nonreactive) 04/10/25 04:58 Hepatitis C Antibody Non-reactive (Nonreactive) 04/10/25 04:58 HIV 1&2 Ab & HIV 1 Ag Non-reactive (Non-Reactiv) 04/10/25 04:58 HIV 1&2 Antibody Non-reactive (Non-Reactiv) 04/10/25 04:58 Influenza A (PCR) Negative (Negative) 04/16/25 08:50 Influenza Type B (PCR) Negative (Negative) 04/16/25 08:50 RSV (PCR) Negative (Negative) 04/16/25 08:50 SARS-CoV-2 (PCR) Negative (Negative) 04/16/25 08:50 Vitals Last Vital Signs Temp 98.2 F 04/21/25 07:23 Pulse 87 04/21/25 07:23 Resp 18 04/21/25 08:52 BP 114/79 04/21/25 07:23 Pulse Ox 98 04/21/25 07:23 O2 Del Method Room Air 04/21/25 07:23 Discharge Plan Discharge Patient Disposition: Home Condition: Stable Prescriptions: New trazodone 50 mg Tablet 50 mg PO BEDTIME PRN (Reason: Sleep) Qty: 30 0RF cephalexin 500 mg Capsule 500 mg PO BID Qty: 4 0RF nicotine 21 mg/24 hr Patch 24 Hour 1 patch transdermal DAILY PRN (Reason: Nicotine Withdrawal) Qty: 28 0RF sertraline 50 mg Tablet 50 mg PO DAILY Qty: 90 0RF olanzapine 5 mg Tablet,Disintegrating 5 mg PO Q4H PRN (Reason: Agitation/Psychosis) Qty: 30 0RF acetaminophen 325 mg Tablet 650 mg PO Q6H PRN (Reason: Mild Pain) Qty: 30 0RF benztropine 1 mg Tablet 1 mg PO BID PRN (Reason: Mild Extrapyramidal symptoms) Qty: 90 0RF Continued acetaminophen-codeine 300-30 mg tablet 1 tab PO Q6H PRN (Reason: Pain) hydroxyzine pamoate 25 mg capsule 25 - 50 mg PO TID PRN (Reason: Anxiety) bupropion HCl 150 mg tablet extended release 24 hr 150 mg PO DAILY Registration Coordinator OK for DC: Psychiatry Discharge Order = DC NOW: Discharge Order (Routine); Ordered 04/21/25 Ordered By: Gracia Gonzalez Referrals: pcp [Other] - 4-7 days Referral Note: PCP follow up Discharge Diet: Advance as tolerated and Usual diet Discharge Activity: Resume usual activity and Increase activity as tolerated Patient Instructions: Cephalexin (By mouth), Sertraline (By mouth), Olanzapine (By mouth), Opioid Safety, Patient Portal & Lynette Instructions Discharge Attestations Time Spent in Discharge Care*: greater than 30 min Quality Metrics Clinical Quality Measures [ No reported AMI, CVA or VTE this stay] Coding Level of Care Code 18870 Total time (in minutes) for Discharge: 60 Diagnoses Gastritis K29.70 Abdominal pain R10.9 Acute hypokalemia E87.6 Dysuria R30.0 Suicidal ideation R45.851
[2025-04-21 11:19] VITALS: BP 124/84; PULSE 104; RESP 20; TEMP 36.7; O2SAT 98
--- NOTE | 2025-04-21 14:10 | PC.NURSE ---
IV removed intact at this time. Patient tolerated well.
[2025-04-21 14:43] VITALS: BP 120/80; PULSE 98; RESP 16; TEMP 36.9; O2SAT 98
--- NOTE | 2025-04-21 14:46 | PC.NURSE ---
Patient escorted by [facility] with her discharge papers and discharge home medications at this time. Patient will wait there for [facility] to pick her up. Patient is A&Ox4. Respirations even and non-labored on room air. No obvious signs of distress noted.
== END 2025-04-21 14:48 | disposition home or self-care (01) | DRG 751 ==
LOC: ER 20:13 → MEDSURG 21:00 → NP 04-11 13:45 → MEDSURG 04-19 10:54
PROVIDERS: Family Medicine; Nurse Practitioner Gerontology; Psychiatry & Neurology Psychiatry; Admitting Provider Internal Medicine; Emergency Provider Emergency Medicine; Visit Provider Clinical Nurse Specialist Acute Care
DX: F32.9 Major depressive disorder, single episode, unspecified (principal); E87.20 Acidosis, unspecified; K29.70 Gastritis, unspecified, without bleeding; E87.6 Hypokalemia; R45.851 Suicidal ideations; R30.0 Dysuria; E83.51 Hypocalcemia; F12.10 Cannabis abuse, uncomplicated; F41.9 Anxiety disorder, unspecified; F43.10 Post-traumatic stress disorder, unspecified; L08.9 Local infection of the skin and subcutaneous tissue, unspecified; N20.0 Calculus of kidney
CPT/HCPCS: 36415; 36416; 36600; 70450; 70496; 70498; 70551; 71045; 74176; 80048; 80051; 80053; 80061; 80074; 80306; 80307; 81001; 81025; 82140; 82330; 82607; 82746; 82803; 82805; 82962; 83605; 83690; 83735; 84100; 84132; 84439; 84443; 85025; 86592; 87040; 87637; 87806; 92507; 92523; 92526; 93005; 93306; 96360; 97150; 97165; 99285; G0378; J0612; J1885; J2270; J2470; J3480; J7030; J7120; J8498; J9999; Q0162